=== PATIENT | female | born 1985 | race Caucasian/White ===

== ENCOUNTER → 2017-10-15 | Outpatient (REF) | payer OTHER ==
[2016-11-24 17:30] VITALS: BMI 43.1
[~2017-10-15] MED LIST: ACET-1718 PO; CALC-605 PO; ENOX40DI8 SQ; ENOX60DI8 SQ; HEPA100D89 ASDIRECTED; HYDR-317 PO; IBUP800T37 PO; PRED-1 PO; SERT-181 PO
== END ==
LOC: ZZSENDIN 11:01
PROVIDERS: ATTEND Obstetrics & Gynecology
DX: N89.8 Other specified noninflammatory disorders of vagina (principal)
CPT/HCPCS: 84112

== ENCOUNTER → 2018-01-07 | Outpatient (CLI) | payer OTHER ==
[2016-11-24 17:30] VITALS: BMI 43.1
[~2018-01-07] MED LIST changes: +HEPA500035 SC; +PREN-136
== END ==
LOC: LAB 11:07
PROVIDERS: ATTEND Obstetrics & Gynecology
DX: Z34.93 Encounter for supervision of normal pregnancy, unspecified, third trimester (principal)
CPT/HCPCS: 87081

== ENCOUNTER → 2018-01-13 | Outpatient (CLI) | payer OTHER ==
[2016-11-24 17:30] VITALS: BMI 43.1
== END ==
LOC: LAB 13:15
PROVIDERS: ATTEND Obstetrics & Gynecology
DX: O09.93 Supervision of high risk pregnancy, unspecified, third trimester (principal); Z86.711 Personal history of pulmonary embolism
CPT/HCPCS: 36415; 85027

== ENCOUNTER 2018-01-24 19:28 | Inpatient (IN) | payer OTHER ==
[~2018-01-24] VITALS: Ht 162.6 cm; Wt 116.6 kg
[2018-01-24] MEDS ORDERED: FAMOTIDINE(*) 20MG/50ML PREMIX 50 ML IVPB PRN (19:29)
[2018-01-24] MEDS ORDERED: FLUSH 10 ML SYR IVP PRN (19:30)
[2018-01-24] MEDS ORDERED: fentaNYL CITR 100 MCG/2 ML AMP IVP PRN (19:30)
[2018-01-24] MEDS ORDERED: LIDOCAINE 1% LOCAL 300 MG/30ML INJ PRN (19:30)
[2018-01-24] MEDS ORDERED: LIDOCAINE/SOD BICARB 8.4% SYR SC PRN (19:30)
[2018-01-24] MEDS ORDERED: METOCLOPRAMIDE 10 MG/2 ML SDV IVP PRN (19:30)
[2018-01-24] MEDS ORDERED: ONDANSETRON 4 MG/2 ML VIAL IVP PRN (19:35)
[2018-01-24] MEDS ORDERED: LR(*) 1000 ML BAG 1,000 ML IV PRN (20:18)
[2018-01-24 20:22] VITALS: BP 125/53; Ht 162.6 cm; Wt 116.6 kg
[2018-01-24 20:35] LABS: PLATELET COUNT, AUTOMATED 216 K/uL (150-450)
--- NOTE | 2018-01-24 20:49 | History & Physical ---
History of Present Illness EDC per LMP: February 01, 2018 Chief Complaint Induction History of Present Illness 32yo at 38w6d presents for ripening prior to induction due to being on anticoagulants during for history of DVT with subsequent PE. She denies regular UCx. No VB/LOF. +FM. No preeclampsia symptoms. PNR reviewed. PNC by EMILLefty. c/b obesity (prepregnancy BMI 40) and history of DVT with PE in 2006. Her last dose of prophylactic heparin was at 0700 today. 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 They live with their 3 children and her mother. No use of alcohol, tobacco, or illicit drugs. Family History: FH: HTN (hypertension) MOTHER, Age:52 FH: depression family members unspecified FH: heart disease FATHER, Age:66 FH: kidney disease MOTHER, Age:52 FH: lung disease MOTHER, Age:52 FH: thyroid condition aunt Med Rec Home Meds Active Scripts Heparin Sod,Porc/Pf 5000 U/0.5 Ml (HEPARIN SOD 5,000 UNIT/ 0.5 ML) 5,000 Unit/ 0.5 Ml Vial, 62384 UNIT SC BID for 21 Days, #42 VIAL 0 Refills Prov:JAYCE BOLDEN MD 01/07/18 Reported Medications Vit W-Ca,Fe,FA(<1 mg) ( Vitamins) 1 Each Tablet 01/04/18 Sertraline Hcl (SERTRALINE HCL) 100 Mg Tablet, 1 TAB PO QDAY, TAB 12/31/17 Review of Systems Constitutional: No Fever Eyes: No Vision Change Cardiovascular: No Chest Pain Respiratory: No Shortness of Breath, No Cough Gastrointestinal: No Nausea, No Vomiting, No Diarrhea Genitourinary: No Dysuria Musculoskeletal: No Pain Psychiatric: No Depression, No Anxiety Exam General Exam Vital Signs VS reviewed General Apperance: Alert/Awake/No Acute Distress Neuro: No Gross deficits Eyes: Normal Extraocular Movement & Vison Cardiovascular: Regular Rate and Rhythm Respiratory: No Respiratory Distress, Clear to Auscultation Abdomen: Soft, Non-Tender, Non-Distended, Gravid - Non-Tender : Normal Musculoskeletal: No Weakness/Pain Extremities: No Cyanosis,Clubbing or Edema Integumentary: Skin Intact without Lesions or Rash Psychological: Alert & Oriented X3, Appropriate Mood & Affect Cervical Dialation: 2 Cervical Effacement (%): 50 Cervical Consistency: Moderate Cervical Position: Posterior Station: Ballotable Presentation: Vertex Uterine Contractions(Q min): 4 Uterine Contraction Strength: Mild UC Resting Tone: Soft Fetus Feeling Movement?: Yes FHT Category: I Assessment and Plan Problems: (1) History of pulmonary embolism Status: Chronic Assessment & Plan: 32yo at 38w6d presents for ripening prior to IOL due to anticoagulation in . Her last heparin dose was 0700 on 01/24/18. PTT is normal at 25. Will proceed with ripening and follow with IOL once more favorable. Plan cytotec 25mcg now and pitocin later. Plan SCDs during labor and will re-initiate Lovenox PP. (2) 39 weeks gestation of JAYCE BOLDEN MD January 24, 2018 20:31
[2018-01-24] MEDS ORDERED: OXYTOCIN 30 UNIT/LR 500 ML 500 ML IV PRN (20:50)
[2018-01-24] MEDS ORDERED: MISOPROSTOL 25 MCG CAP PV PRN (20:50)
[2018-01-24] MEDS ORDERED: CLINDAMYCIN 900 MG/6 ML 900 MG in NS(*) 0.9% 100 ML BAG 100 ML IVPB ONE (21:50)
[2018-01-24] MEDS ORDERED: CLINDAMYCIN 900 MG/6 ML 900 MG in NS(*) 0.9% 100 ML BAG 100 ML IVPB PRN (21:55)
[2018-01-25] MEDS ORDERED: BUPIVACAINE 0.5% INJ 30ML VIAL EPI PRN (00:20)
[2018-01-25] MEDS ORDERED: BUPIVACAINE 0.25% MPF INJ EPI PRN (00:20)
[2018-01-25] MEDS ORDERED: LIDOCAINE/PF 2% 200MG/10ML AMP 200 MG/10 ML AMPUL EPI PRN (00:20)
[2018-01-25] MEDS ORDERED: fentaNYL CITR 100 MCG/2 ML AMP IT PRN (00:20)
[2018-01-25] MEDS ORDERED: ePHEDrine 25 MG/5 ML DISP.SYR IVP PRN (00:20)
[2018-01-25] MEDS ORDERED: FENTANYL/ROPIVACAINE 100 ML BAG EPI PRN (00:20)
[2018-01-25] MEDS ORDERED: LIDO/EPI 2% MPF 1:200,000 20ML EPI PRN (00:20)
[2018-01-25] MEDS ORDERED: LR(*) 1000 ML BAG 1,000 ML IV PRN (01:47)
[2018-01-25] MEDS ORDERED: OXYTOCIN 30 UNIT/D5LR 500 ML 500 ML IV PRN (01:47)
[2018-01-25] MEDS ORDERED: LIDOCAINE 1% LOCAL 300 MG/30ML INJ PRN (01:50)
[2018-01-25] MEDS ORDERED: FLUSH 10 ML SYR IVP PRN (01:50)
--- NOTE | 2018-01-25 01:59 | Anesthesia OB Pre-Anes Eval ---
History of Present Illness Anesthesia Start Date: January 25, 2018 Anesthesia Start Time: 01:06 OB Anesthesia Diagnosis: induction - medical Current Complication: obesity, other (bld thinners/dvt hx) EDC: February 01, 2018 : 7 Para: 3 Pain Ratin Heart Tones: 130 Result Diagram: 01/24/182009 Height (Inches): 64 Weight (Pounds): 257 BMI Calculated: 43.07 Past Medical History Medical History: other (PE) Previous Anesthesia: epidural Attended Childbirth Classes?: No Hx Anesthesia Reactions: No Hx Family Anesthesia Reaction: No Current Medications: pitocin Past Complications: obesity (last heparin @0630 01/24/18) Home Meds Active Scripts Heparin Sod,Porc/Pf 5000 U/0.5 Ml (HEPARIN SOD 5,000 UNIT/ 0.5 ML) 5,000 Unit/ 0.5 Ml Vial, 58635 UNIT SC BID for 21 Days, #42 VIAL 0 Refills Prov:JAYCE BOLDEN MD 01/07/18 Reported Medications Vit W-Ca,Fe,FA(<1 mg) ( Vitamins) 1 Each Tablet 01/04/18 Sertraline Hcl (SERTRALINE HCL) 100 Mg Tablet, 1 TAB PO QDAY, TAB 12/31/17 Allergies: Coded Allergies: Sulfa (Sulfonamide Antibiotics) (Verified Allergy, Severe, ANAPHYLAXIS, 09/07) THROAT SWELLS, verified 12/31/17 Penicillins (Verified Allergy, Mild, HIVES, 12/31/17) verified 12/31/17 mold (Unverified Allergy, Mild, 01/04/18) Anesthesia OB ROS Neurological: No migraines/headaches, No seizures, No neuropathy, No other ENT: Denies Tooth caps, Denies Loose teeth, Denies Chipped teeth, Denies Dentures, Denies Bridges, Denies Retainers, Denies Veneers, Denies Implants, Denies Tongue ring, Denies Other Pulmonary: No asthma, No smoker (pks/day/yrs), No other Airway Class: lll Cardiovascular ROS: No edema, No arrhythmia, No other GI ROS: clear liquids Last Solids Date: January 24, 2018 Last Solids Time: 17:30 ROS: No Herpes, No STD(s), No Liver Disease, No Renal Disease, No Other Endocrine ROS: other (obese) Musculoskeletal ROS: No low back pain, No low back injury, No scoliosis, No other ASA Classification: 3 Assessment and Plan Anesthesia Plan: LEO HILL CRNA January 25, 2018 01:59
--- NOTE | 2018-01-25 02:02 | Procedure Note ---
Anesthetic Placement Note Anesthesia Plan: CSE Permit for Anesthesia Signed: Yes Anesthesia Technique: Patient Sitting Anesthesia Prep: Chlorhexidine Interspace: L 3-4 Local Anesthetic: 1% Lidocaine Amount Local - cc's: 3 Anesthesia Needle: 17g Touhy/Schliff Anesthesia Attempts: 1 Loss of Resistance: Normal Saline Depth of MAC (cm): 5 Epidural Needle Placement: No CSF, No Blood, No Parasthesia Intrathecal Needle: 27 Gauge Pencan Cerebral Spinal Fluid: Yes, Clear Catheter Insertion (cm): 11 Catheter Type: Osman - Spring Wound Epidural Dressing: Tegaderm, Tape Anesthesia Tray: Lot Number ([id number]), Expiration Date (07/08), Reference Number ([id number]) Anesthesia Medications: Intrathecal Dose: mcg Fentanyl (10), mg Marcaine MPF (2.5), Time (0125) Epidural Test Dose: 1.5 Lido/Epi (1:200,000), Dose - mL (3), Time (0129), Negative Epidural Infusion: 0.2% Ropivicaine, With Fentanyl 2mcg/ml, Start Time: (0137) Epidural Pump Setting: Bolus Dose - mL (6), Lockout - Minutes (20), Maintenance Rate - mL/hr (6), Maximum per Hour - mL (24) Complications: None LEO URIBE CRNA January 25, 2018 02:02
[2018-01-25] MEDS ORDERED: MISOPROSTOL 200 MCG TAB PV ONE (06:45)
[2018-01-25] MEDS ORDERED: CARBOPROST TROMETHAM 250MCG/ML IM ONLY ONE (06:45)
[2018-01-25] MEDS ORDERED: METHYLERGONOVINE MAL 0.2MG/ML IM ONE (06:45)
[2018-01-25] MEDS ORDERED: DIPHENOX/ATROPINE 2.5-0.025MG PO PRN (06:45)
--- NOTE | 2018-01-25 07:22 | Labor Progress Note ---
Labor Subjective Progress Notes Subjective Pt is doing well. Comfortable with epidural. No concerns. Labor Objective Vital Signs Vital Signs Date Time Temp Pulse Resp B/P (MAP) Pulse Ox O2 Delivery O2 Flow Rate FiO2 01/24/18 20:22 98.3 83 14 125/53 (77) 94 Room Air Vaginal Discharge/Fluid?: Clear Fluid Cervical Dialation: 4 Cervical Effacement (%): 70 Cervical Consistency: Soft Cervical Position: Mid Station: 0 Presentation: Vertex Uterine Contractions(Q min): 5 Uterine Contraction Strength: Moderate UC Resting Tone: Soft Fetus FHT Category: I General Exam General Appearance: Alert/Awake/No Acute Distress Cardiovascular: Regular Rate and Rhythm Respiratory: No Respiratory Distress Extremities: No Cyanosis,Clubbing or Edema (SCDs on) Integumentary: Skin Intact without Lesions or Rash Psychological: Alert & Oriented X3, Appropriate Mood & Affect Other Result Diagram: 01/24/182009 Assessment and Plan Problems: (1) History of pulmonary embolism Status: Chronic Assessment & Plan: Pt is now favorable. AROM with clear fluid and FSE/IUPC placed for monitoring assistance. Continue pitocin. Anticipate . (2) 39 weeks gestation of JAYCE BOLDEN MD January 25, 2018 07:21
[2018-01-25] MEDS ORDERED: MISOPROSTOL 200 MCG TAB ONE (07:34)
--- NOTE | 2018-01-25 07:51 | Anesthesia Progress Note ---
Progress/Maintenance Anesthesia Note Date: January 25, 2018 Anesthesia Note Time: 06:00 Pain Intensity: 0 Pump: On Pump Rate (ML/HR): 6 Motor Level: Bending Knees-Bilateral Dilatation: 4 Position: Left, Tilt LEO URIBE CRNA January 25, 2018 07:51
--- NOTE | 2018-01-25 08:34 | Anesthesia Progress Note ---
Progress/Maintenance Anesthesia Note Date: January 25, 2018 Anesthesia Note Time: 08:25 Pain Intensity: 7 Pump: On Pump Rate (ML/HR): 6 Motor Level: Bending Knees-Bilateral Dilatation: 10 Position: Left Drug Bolus: 0.25% Marcaine (5cc + Fent 50 mcg) LEO URIBE CRNA January 25, 2018 08:34
[2018-01-25] MEDS ORDERED: HYDROCORTISONE 2.5% CR 30GM TB PR PRN (08:55)
[2018-01-25] MEDS ORDERED: BENZOCAINE 20% 60 ML BTL TP PRN (08:55)
[2018-01-25] MEDS ORDERED: LANOLIN OINT 7 GM TUBE TP PRN (08:55)
[2018-01-25] MEDS ORDERED: APAP/HYDROCODONE 325/5 TAB PO PRN (08:55)
[2018-01-25] MEDS ORDERED: GLYCERIN/WITCH HAZEL LEAF 1 PK TP PRN (08:55)
[2018-01-25] MEDS ORDERED: MAGNESIUM HYDROXIDE* 30ML UDCP PO PRN (08:55)
--- NOTE | 2018-01-25 08:55 | OB Delivery Note ---
Delivery Note Vaginal Delivery Type: Spont. Vaginal Delivery Delivery Date: January 25, 2018 Delivery Time: 08:39 Estimated Gestational Age(wks): 39 Labor Stage III (minutes): 3 Delivery Anesthesia: Epidural Sex: Female [place] Apgars: 1 Minute (9), 5 Minute (9) JAYCE BOLDEN MD January 25, 2018 08:55
--- NOTE | 2018-01-25 08:58 | Anesthesia Progress Note ---
Assessment and Plan Anesthesia Stop Day: January 25, 2018 Anesthesia Stop Time: 08:50 Epidural Catheter Removal: Removed Catheter Intact, Yes, Removed by: (Yarely JACOB) Removal Date: January 25, 2018 Condition Vital Signs 01/25/18 0850 Temp 98.3 Pulse 83 Resp 16 B/P (MAP) 113/71 Pulse Ox 94 O2 Delivery Room Air LEO URIBE CRNA January 25, 2018 08:58
[2018-01-25] MEDS ORDERED: LR(*) 1000 ML BAG 1,000 ML ONE (09:45)
[2018-01-25 09:47] VITALS: BP 123/75
[2018-01-25] MEDS: DOCUSATE CALCIUM 240 MG CAP PO SCH ×2 (09:49→22:01)
[2018-01-25] MEDS: IBUPROFEN 800 MG TAB PO SCH ×2 (09:50→17:11)
--- NOTE | 2018-01-25 10:53 | DELIVERY NOTE ---
DELIVERY DATE: January 25, 2018 SURGEON: Asiya Guillermo MD ANESTHESIA: Epidural. LAB INTERN: Otilia Ruiz CRNA ESTIMATED BLOOD LOSS 100 mL. PREOPERATIVE DIAGNOSIS Intrauterine at 39 weeks gestation presenting for induction of labor due to anticoagulation during . POSTOPERATIVE DIAGNOSES 1. Intrauterine at 39 weeks gestation presenting for induction of labor due to anticoagulation during . 2. Delivery of a viable female infant at 0839 hours weighing 2830 grams with Apgars of 9 at one minute and 9 at five minutes. PROCEDURE Spontaneous vaginal delivery. INDICATIONS FOR PROCEDURE This patient is a 32-year-old 8, para 4-0-3-4 who presented at 38 weeks and 6 days for cervical ripening prior to induction of labor. At the time of presentation, she was 2, 50 and ballotable. She was being induced due to a history of pulmonary embolism in 2006 requiring anticoagulation during . She had a normal PT-T after stopping her heparin for approximately 12 hours prior to admission. SCDs were on and running throughout her entire admission. She was administered Cytotec vaginally, after which time she was 3, 70, -3. She was then started on low-dose Pitocin and slowly increased, allowing the head to become more applied. At 0712 hours, she was 4, 70 and -1, at which time an amniotomy was performed with return of clear fluid. She then progressed to complete at 0832 hours, and was prepared for delivery. DESCRIPTION OF PROCEDURE The patient was noted to be complete, so was placed in the dorsal lithotomy position and prepped and draped in usual fashion for a vaginal delivery. She was asked to push, and within half a push was able to bring the 's vertex to the perineum. She then stopped pushing, and the 's vertex delivered in the QUINN position spontaneously followed by the anterior shoulder. A nuchal cord was noted and delivered around the head. The remainder of the was easily delivered. The infant had spontaneous cry and spontaneous movement of all four extremities. The oropharynx and nasopharynx were bulb suctioned. The infant was dried and stimulated and passed to the mother's abdomen in good condition. After approximately one minute, the cord was clamped times two and cut. Cord blood was then obtained and passed off the table. Pitocin was started through the IV fluid immediately after delivery of the shoulder to help firm the uterus. The placenta subsequently delivered spontaneously intact at 0842 hours and was passed off the table. Cytotec 800 mcg was administered rectally for prophylaxis due to her grand multiparity. At this time, evaluation of the cervix, vaginal vault and perineum revealed no lacerations. The patient tolerated this procedure well and recovered in Labor and Delivery with her . All sponge and needle counts were correct at the end of this procedure. ANTIONED
[2018-01-25 11:34] VITALS: BP 121/63
[2018-01-25 15:40] VITALS: BP 117/58
[2018-01-25] MEDS ORDERED: ENOXAPARIN 100 MG/ML SYR SC SCH (19:00)
[2018-01-25 19:30] VITALS: BP 137/77
[2018-01-25] MEDS: SERTRALINE HCL 50 MG TAB PO SCH (19:32)
[2018-01-25] MEDS: ENOXAPARIN SODIUM 60 MG/0.6 ML SYR SC SCH (21:00)
[2018-01-26 00:06] VITALS: BP 147/68
[2018-01-26] MEDS: IBUPROFEN 800 MG TAB PO SCH ×3 (00:48→16:47)
[2018-01-26 03:00] VITALS: BP 123/58
[2018-01-26 08:00] VITALS: BP 133/63
[2018-01-26] MEDS: ENOXAPARIN SODIUM 60 MG/0.6 ML SYR SC SCH ×2 (08:23→21:12)
[2018-01-26] MEDS: DOCUSATE CALCIUM 240 MG CAP PO SCH ×2 (08:23→19:44)
--- NOTE | 2018-01-26 08:27 | OB/GYN Progress Note ---
OB Subjective Progress Notes Subjective Doing well. Pain controlled with oral medications. Tolerating regular diet. Ambulating. Voiding. Normal lochia. No preeclampsia symptoms. OB Objective Physical Exam Vital Signs Date Time Temp Pulse Resp B/P (MAP) Pulse Ox O2 Delivery O2 Flow Rate FiO2 01/26/18 03:00 98.4 59 16 123/58 (79) Room Air 01/25/18 15:40 91 General Appearance: Alert/Awake/No Acute Distress Neurological: No Gross deficits Eyes: Normal Extraocular Movement & Vison Cardiovascular: Normal Rhythm & Peripheral Pulses, Regular Rate and Rhythm Respiratory: No Respiratory Distress, Clear to Auscultation Abdomen: Soft, Non-Tender, Non-Distended, Fundus Firm Extremities: No Cyanosis,Clubbing or Edema (SCDs on) Integumentary: Skin Intact without Lesions or Rash Psychological: Alert & Oriented X3, Appropriate Mood & Affect Result Diagram: 01/24/182009 Assessment and Plan Problems: (1) care and examination immediately after delivery Assessment & Plan: PPD#1 s/p . Work on today. Anticipate home tomorrow. (2) History of pulmonary embolism Status: Chronic JAYCE BOLDEN MD January 26, 2018 08:27
[2018-01-26] MEDS ORDERED: DIPHTH/TETANUS/ACEL. PERTUSSIS IM ONLY ONE (08:55)
[2018-01-26] MEDS ORDERED: INFLUENZA VIRUS VAC 0.5 ML SYR IM ONLY ONE (08:55)
[2018-01-26] MEDS ORDERED: MEASLES,MUMP,RUBELLA VAC 0.5ML SUBQ ONE (08:55)
--- NOTE | 2018-01-26 10:47 | Anesthesia Post Eval Note ---
Anesthesia Post Eval Note Vital Signs 01/26/18 08:00 Temp 98.3 Pulse 59 Resp 16 B/P (MAP) 133/63 (86) Pulse Ox 90 O2 Delivery Room Air Cardiovascular Status: Satisfactory Respiratory Status: Satisfactory Pain Managment: Satisfactory PO Nausea/Vomiting: Satisfactory Temperature Management: Satisfactory Mental Status: Satisfactory, Alert, Oriented X3 Post-Op Hydration Status: Satisfactory, Tolerating PO Well, Voiding w/o Difficulty Anesthesia Type: LEO HILL CRNA January 26, 2018 10:47
[2018-01-26 12:05] VITALS: BP 124/78
[2018-01-26] MEDS: ACETAMINOPHEN 325 MG TAB PO PRN ×2 (14:47→23:25)
[2018-01-26 16:45] VITALS: BP 141/67
[2018-01-26] MEDS: SERTRALINE HCL 50 MG TAB PO SCH (19:43)
[2018-01-27] MEDS: IBUPROFEN 800 MG TAB PO SCH ×3 (01:00→08:49)
[2018-01-27 05:47] VITALS: BP 126/75
--- NOTE | 2018-01-27 07:41 | OB/GYN Progress Note ---
OB Subjective Progress Notes Subjective Doing well. Pain controlled with oral medications. Tolerating regular diet. Ambulating. Voiding. Normal lochia. No preeclampsia symptoms. OB Objective Physical Exam Vital Signs Date Time Temp Pulse Resp B/P (MAP) Pulse Ox O2 Delivery O2 Flow Rate FiO2 01/27/18 05:47 98.4 76 17 126/75 (92) Room Air 01/26/18 08:00 90 General Appearance: Alert/Awake/No Acute Distress Neurological: No Gross deficits Eyes: Normal Extraocular Movement & Vison Cardiovascular: Normal Rhythm & Peripheral Pulses, Regular Rate and Rhythm Respiratory: No Respiratory Distress, Clear to Auscultation Abdomen: Soft, Non-Tender, Non-Distended, Fundus Firm Extremities: No Cyanosis,Clubbing or Edema (SCDs on) Integumentary: Skin Intact without Lesions or Rash Psychological: Alert & Oriented X3, Appropriate Mood & Affect Result Diagram: 01/24/182009 Assessment and Plan Problems: (1) care and examination immediately after delivery Assessment & Plan: PPD#2. Meeting milestones. Desires discharge to home today. Discussed routine expectations. Questions answered. Follow up in clinic in 6wks for check. (2) History of pulmonary embolism Status: Chronic JAYCE BOLDEN MD January 27, 2018 07:41
[2018-01-27] MEDS ORDERED: SERT-181 PO (07:42)
[2018-01-27] MEDS ORDERED: Enoxaparin Sodium SC (07:42)
[2018-01-27] MEDS ORDERED: IBUP800T37 PO (07:42)
--- NOTE | 2018-01-27 07:43 | OB/GYN Discharge Summary ---
Discharge Summary Reason for Hosp/Final Diag: (1) care and examination immediately after delivery Hospital Course & Plan: PPD#2. Meeting milestones. Desires discharge to home today. Discussed routine expectations. Questions answered. Follow up in clinic in 6wks for check. (2) History of pulmonary embolism Status: Chronic Hospital Course & Plan: Cont Lovenox 60 BID for 6wks. Lates Vital Signs Vital Signs Date Time Temp Pulse Resp B/P (MAP) Pulse Ox O2 Delivery O2 Flow Rate FiO2 01/27/18 05:47 98.4 76 17 126/75 (92) Room Air 01/26/18 08:00 90 Weight (Pounds): 257 Result Diagram: 01/24/182009 Condition: Improved Home Meds Active Scripts Heparin Sod,Porc/Pf 5000 U/0.5 Ml (HEPARIN SOD 5,000 UNIT/ 0.5 ML) 5,000 Unit/ 0.5 Ml Vial, 84484 UNIT SC BID for 21 Days, #42 VIAL 0 Refills Prov:JAYCE GUILLERMO MD 01/07/18 Reported Medications Vit W-Ca,Fe,FA(<1 mg) ( Vitamins) 1 Each Tablet 01/04/18 Sertraline Hcl (SERTRALINE HCL) 100 Mg Tablet, 1 TAB PO QDAY, TAB 12/31/17 Follow up Referrals: OR NURSE MANAGER @ [facility] with Jayce Guillermo Md Discharge Diet: As Tolerates Discharge Activity: Pelvic Rest JAYCE GUILLERMO MD January 27, 2018 07:43
[2018-01-27 08:45] VITALS: BP 132/72
[2018-01-27] MEDS: ENOXAPARIN SODIUM 60 MG/0.6 ML SYR SC SCH (08:45)
[2018-01-27] MEDS: DOCUSATE CALCIUM 240 MG CAP PO SCH (08:49)
== END 2018-01-27 09:20 | disposition home or self-care (01) | DRG 775 ==
LOC: OB 19:28
PROVIDERS: ADMIT Obstetrics & Gynecology; ATTEND Obstetrics & Gynecology
PROC: 3E0P7VZ Introduction of Hormone into Female Reproductive, Via Natural or Artificial Opening (ICD-10-PCS; 2018-01-24)
PROC: 3E033VJ Introduction of Other Hormone into Peripheral Vein, Percutaneous Approach (ICD-10-PCS; 2018-01-24)
PROC: 10E0XZZ Delivery of Products of Conception, External Approach (ICD-10-PCS; principal; 2018-01-25)
PROC: 10907ZC Drainage of Amniotic Fluid, Therapeutic from Products of Conception, Via Natural or Artificial Opening (ICD-10-PCS; 2018-01-25)
DX: O69.81X0 Labor and delivery complicated by cord around neck, without compression, not applicable or unspecified (principal); Z68.41 Body mass index [BMI] 40.0-44.9, adult; O99.214 Obesity complicating childbirth; E66.9 Obesity, unspecified; Z37.0 Single live birth; Z88.2 Allergy status to sulfonamides; Z3A.39 39 weeks gestation of pregnancy; Z86.711 Personal history of pulmonary embolism; Z79.01 Long term (current) use of anticoagulants; Z88.0 Allergy status to penicillin; Z86.718 Personal history of other venous thrombosis and embolism
CPT/HCPCS: 36415; 85025; 85730; 86850; 86900; 86901; J2590; J3010; J7120; S0020

== ENCOUNTER → 2018-03-16 | Outpatient (CLI) | payer OTHER ==
[2018-01-24 20:22] VITALS: BMI 42.8
[~2018-03-16] MED LIST changes: +Enoxaparin Sodium SC
== END ==
LOC: LAB 14:21
PROVIDERS: ATTEND Obstetrics & Gynecology
DX: R82.90 Unspecified abnormal findings in urine (principal); R82.79 Other abnormal findings on microbiological examination of urine
CPT/HCPCS: 87088

== ENCOUNTER → 2018-04-12 | Outpatient (CLI) | payer OTHER ==
[2018-01-24 20:22] VITALS: BMI 42.8
--- NOTE | 2018-04-12 15:02 | RADIOLOGY IMAGING REPORT ---
[place] [facility] [place] NAME: Norma Parks : 1985 MR: [id number] V: [id number] EXAM DATE: ORDERING PHYSICIAN: JAYCE BOLDEN TECHNOLOGIST: Location: [facility] Patient: Norma Parks : 1985 Visit/Account:[id number] Date of Sevice: 04/12/2018 Exam type: KUB SINGLE VIEW ABDOMEN History: locate IUD Comparison: None. Findings: There is a nonspecific bowel gas pattern present. Surgical clips are present right upper quadrant of abdomen. There is an IUD projecting over the mid pelvis. The IUD is in a horizontal location with the distal tip projecting towards the right. IMPRESSION: 1. IUD is noted projecting over the mid pelvis in a horizontal location with the distal tip projecti ng towards the right Report Dictated By: Annie Fuentes MD at 04/12/2018 2:57 PM Report E-Signed By: Annie Fuentes MD at 04/12/2018 2:59 PM ELISAN:JESICA
== END ==
LOC: RAD 13:49
PROVIDERS: ATTEND Obstetrics & Gynecology
DX: T83.32XA Displacement of intrauterine contraceptive device, initial encounter (principal)
CPT/HCPCS: 74018

== ENCOUNTER 2018-04-14 02:07 | Day surgery (SDC) | payer OTHER ==
[2018-01-24 20:22] VITALS: Ht 167.6 cm; Wt 109.3 kg
[~2018-04-14] VITALS: Ht 167.6 cm; Wt 109.3 kg
[2018-04-14 09:00] VITALS: BP 123/54
[2018-04-14 09:13] LABS: PLATELET COUNT, AUTOMATED 302 K/uL (150-450)
[2018-04-14] MEDS ORDERED: FAMOTIDINE 20 MG TAB PO ONE (09:50)
[2018-04-14] MEDS ORDERED: MIDAZOLAM 2 MG/2 ML VIAL IVP PRN (09:50)
[2018-04-14] MEDS ORDERED: LIDOCAINE/SOD BICARB 8.4% SYR ID ONE (09:50)
[2018-04-14] MEDS ORDERED: NORMOSOL R SOLN(*) 1000 ML BAG 1,000 ML IV PRN (09:50)
[2018-04-14] MEDS ORDERED: ROPIVACAINE 0.2% 20 ML VIAL ONE (09:50)
[2018-04-14] MEDS ORDERED: DEXAMETHASONE SOD PHOS 10MG/ML ONE (10:00)
[2018-04-14] MEDS ORDERED: SUGAMMADEX SOD 500 MG/5 ML SDV ONE (10:00)
[2018-04-14] MEDS ORDERED: fentaNYL CITR 100 MCG/2 ML AMP ONE ×2 (10:02→11:04)
[2018-04-14] MEDS ORDERED: KETOROLAC 30 MG/ML VIAL ONE (10:42)
[2018-04-14] MEDS ORDERED: LR(*) 1000 ML BAG 1,000 ML IV ONE (11:17)
[2018-04-14] MEDS ORDERED: ONDANSETRON 4 MG/2 ML VIAL IVP PRN (11:20)
[2018-04-14] MEDS ORDERED: METOCLOPRAMIDE 10 MG/2 ML SDV IVP PRN (11:20)
--- NOTE | 2018-04-14 11:29 | Post Operative Note ---
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 Operative Day Date: Apr 14, 2018 Time: 11:18 Physicians Surgeon: Vy Moser Anesthesia: ERI-Patrice Parmar 0.2% rupivicaine Diagnosis Pre-Op Diagnosis: 32 y/o Multigravida Displaced IUD/Intraabdominal Post-Op Diagnosis: same Procedure Findings: Normal Uterus 8 week size Normal fallopian tubes and ovaries bilaterally IUD in the posterior Cul de sac Procedure(s): Diagnostic laparoscopy IUD removal Specimen Removed:(Maybe N/A): 0 Complications: 0 known Fluids Fluids: 900 u/o 200 Estimated Blood Loss: 5 Dictated Date OP Note Dictated: Apr 14, 2018 Time OP Note Dictated: 11:29 VY MOSER DO Apr 14, 2018 11:29
[2018-04-14] MEDS ORDERED: HYDR-4309 PO (11:32)
[2018-04-14] MEDS ORDERED: IBUP800T37 PO (11:32)
--- NOTE | 2018-04-14 11:34 | OB/GYN Discharge Summary ---
Discharge Summary Reason for Hosp/Final Diag: (1) Contraception, device intrauterine, checking Hospital Course & Plan: Pt presented for IUD removal from abdomen. IUD was easily removed from posterior cul de sac with out any difficulty. See details of procedure. Pt remained in recovery and was discharged home from same day surgery. Lates Vital Signs Vital Signs Date Time Temp Pulse Resp B/P (MAP) Pulse Ox O2 Delivery O2 Flow Rate FiO2 04/14/18 09:00 96.9 66 18 123/54 (77) 93 Room Air Weight (Pounds): 241 Result Diagram: 04/14/18 0859 Condition: Improved Discharge: Home Home Meds Active Scripts Ibuprofen (IBUPROFEN) 800 Mg Tablet, 1 TAB PO Q8H Y for PAIN, #30 TAB 0 Refills TAKE WITH FOOD EVERY 8 HOURS Prov:VY PINEDA DO 04/14/18 Hydrocodone Bit/Acetaminophen (NORCO 5-325 TABLET) 1 Each Tablet, 1 EACH PO Q4- 6H Y for PAIN, #20 TAB 0 Refills Prov:VY PINEDA DO 04/14/18 Sertraline Hcl (SERTRALINE HCL) 100 Mg Tablet, 2 TAB PO QDAY, #240 TAB 6 Refills Prov:JAYCE GUILLERMO MD 03/16/18 Reported Medications Vit W-Ca,Fe,FA(<1 mg) ( Vitamins) 1 Each Tablet 01/04/18 Follow up with: [facility] [place] [phone], Dr. Guillermo [phone] Follow up in: 2 wks PO Discharge Diet: As Tolerates, Resume Prior Admit Diet, Increase Fluid Intake Discharge Activity: As Tolerates, Pelvic Rest (X2 weeks) VY PINEDA DO Apr 14, 2018 11:34
[2018-04-14 11:45] VITALS: BP 110/68
[2018-04-14 12:10] VITALS: BP 108/68
[2018-04-14 12:30] VITALS: BP 116/61
[2018-04-14 12:33] VITALS: BP 104/72
[2018-04-14] MEDS ORDERED: IBUPROFEN 800 MG TAB PO SCH (17:00)
--- NOTE | 2018-04-14 17:32 | OPERATIVE REPORT 1 ---
EVENT DATE: April 14, 2018 SURGEON: Matt Moser DO ANESTHESIOLOGIST: Patrice Parmar MD ANESTHESIA: General endotracheal intubation, also 0.2% ropivacaine for local only. PREOPERATIVE DIAGNOSES 1. A 32-year-old multigravida female. 2. Displaced intra-abdominal intrauterine device. POSTOPERATIVE DIAGNOSES 1. A 32-year-old multigravida female. 2. Displaced intra-abdominal intrauterine device. PROCEDURE PERFORMED Diagnostic laparoscopy with intrauterine device removal. FINDINGS Normal uterus, 8 weeks' size. Normal fallopian tubes and ovaries bilaterally. IUD in the posterior cul-de-sac. PATHOLOGY None. ESTIMATED BLOOD LOSS 5 mL URINE OUTPUT 200 mL INTRAVENOUS FLUIDS Lactated Ringer's 900 mL. COMPLICATIONS None known. CONDITION Stable to recovery room and then to Same Day Surgery. COUNTS Correct for all needles, laps, sponges, and instruments. INDICATIONS AND CONSENT Patient is a 32-year-old multigravida female who presented to clinic for an IUD check. Patient has a history of spontaneously passing IUDs vaginally. It was decided to proceed with transvaginal ultrasound to check IUD location. The uterus was empty without an IUD. Patient then underwent a KUB x-ray with the IUD being noted to be intra-abdominal. The patient was counseled that it would be recommended to remove the IUD. She was counseled on risks, benefits, and alternatives, signed the appropriate consents, and proceeded to the operating room. DESCRIPTION OF PROCEDURE Patient was taken to the operating room where she was placed in the dorsal supine position. She then underwent general endotracheal intubation. Once anesthesia was achieved, she was placed in the dorsal lithotomy position, prepped and draped in the usual sterile manner. A sterile speculum was placed in the vagina. The cervix was visualized and grasped with an Allis clamp. The uterus was sounded to 8 cm. A KIERAN uterine manipulator was placed easily into the cervix. Speculum and Allis were removed. Legs were placed in low lithotomy position. The surgeon's gloves were changed. Attention was then turned to the abdomen. Ropivacaine 0.2% was used for local anesthesia at the umbilicus. A 5 mm incision was created with the 11 blade scalpel. Direct laparoscopic entry was performed using a Visiport trocar. Once within the peritoneum, pneumoperitoneum was achieved. The entry site was inspected and found to be clear of any injury to surrounding organs. With no injury, at this point the patient was placed in the Trendelenburg position. With the bowel out of the cul-de-sac, a trocar was placed in the left lower quadrant under direct laparoscopic visualization. A probe was used to move the ovaries and the bowel from the cul-de-sac. It was noted that the IUD was located within the posterior cul-de-sac. A Genicon grasper was then used to grasp the IUD. It was then placed on top of the uterus. The T part of the IUD was grasped with the Genicon and brought through the 5 mm trocar. A picture was taken of the IUD out of the abdomen. Nursing staff was instructed to dispose of the IUD and not to send it to Pathology. At this point, the left lower quadrant trocar was removed under laparoscopic visualization with hemostasis noted. The pneumoperitoneum was released. The umbilical trocar was removed without any difficulty. Skin incisions were then closed with a 4-0 Monocryl. Dermabond was placed over the skin incisions. The patient was then awoken and transferred to the recovery room in stable condition. OMA
== END 2018-04-14 11:45 | disposition home or self-care (01) ==
LOC: OR 02:07
PROVIDERS: ATTEND Student in an Organized Health Care Education/Training Program
DX: T83.32XA Displacement of intrauterine contraceptive device, initial encounter (principal)
CPT/HCPCS: 36415; 58301; 84703; 85025; J1100; J1885; J2795; J3010

== ENCOUNTER 2018-06-28 21:14 | Emergency (ER) | payer OTHER ==
[2018-01-24 20:22] VITALS: Wt 104.8 kg
[~2018-06-28 21:14] MED LIST changes: +HYDR-4309 PO
[2018-06-28] MEDS ORDERED: ACET-1966 PO (21:24)
[2018-06-28 21:30] VITALS: BP 116/80
[2018-06-28] MEDS ORDERED: PSEU120T68 PO (21:50)
[2018-06-28] MEDS ORDERED: DOXY-1 PO (21:50)
--- NOTE | 2018-06-28 21:51 | ER Report ---
History and Physical Time Seen By MD: 21:30 Hx. of Stated Complaint: Patient complains of sinus drainage, pressure, headache over the last 3 weeks. Worst over the weekend and now with metallic taste in mouth HPI/ROS CHIEF COMPLAINT: Sinus pressure HISTORY OF PRESENT ILLNESS: Patient is a 33-year-old female with no significant past medical history who presents to the emergency department for evaluation of sinus pressure, postnasal drip purulent nasal discharge over the past 3 weeks. Patient has tried Tylenol at home for pain which seems to help somewhat as well as 1 day's worth of Sudafed without any significant relief and sinus pressure. Pain is made worse by leaning forward. She feels as if she is having difficulty breathing through her nose secondary to congestion. She denies any fevers or chills. She denies cough or shortness of breath but she does report generalized malaise. Patient is not currently but is breast-feeding a 5-month-old. Patient reports allergies to sulfa drugs which cause "anaphylaxis" she also has rash that occurs with penicillin. REVIEW OF SYSTEMS: ENT: Sinus pressure, ear pressure and nasal congestion denies throat pain Respiratory: No cough, no dyspnea. Cardiovascular: No chest pain, no palpitations. Gastrointestinal: No vomiting, no abdominal pain. Musculoskeletal: No back pain. Allergies: Coded Allergies: Sulfa (Sulfonamide Antibiotics) (Verified Allergy, Severe, ANAPHYLAXIS, 06/28/18) THROAT SWELLS, verified 12/31/17 Penicillins (Verified Allergy, Mild, HIVES, 06/28/18) verified 12/31/17 mold (Unverified Allergy, Mild, 06/28/18) Home Meds Active Scripts Sertraline Hcl (SERTRALINE HCL) 100 Mg Tablet, 2 TAB PO QDAY, #240 TAB 6 Refills Prov:JAYCE BOLDEN MD 03/16/18 Reported Medications Acetaminophen (TYLENOL) 325 Mg Tablet, 325 MG PO Q4-6H, TAB 06/28/18 Vit W-Ca,Fe,FA(<1 mg) ( Vitamins) 1 Each Tablet 01/04/18 Discontinued Scripts Ibuprofen (IBUPROFEN) 800 Mg Tablet, 1 TAB PO Q8H PRN for PAIN, #30 TAB 0 Refills TAKE WITH FOOD EVERY 8 HOURS Prov:VY PINEDA DO 04/14/18 Hydrocodone Bit/Acetaminophen (NORCO 5-325 TABLET) 1 Each Tablet, 1 EACH PO Q4- 6H PRN for PAIN, #20 TAB 0 Refills Prov:VY PINEDA DO 04/14/18 Past Medical/Surgical History History of depression Hx Smoking: No Smoking Status: Never Smoker Exposure to Second Hand Smoke?: No Hx Substance Use Disorder: No Constitutional Vital Sign - Last 24 Hours 06/28/18 21:17 Temp 98.8 Pulse 90 Resp 16 B/P (MAP) 126/73 Pulse Ox 93 O2 Delivery Room Air Physical Exam General Appearance: Alert, no distress. Eyes: Pupils equal and round no pallor or injection. ENT, Mouth: Ears: Tympanic membranes are normal. Nose: No bleeding. Positive nasal turbinate inflammation with purulent discharge Mouth: Mucous membranes are moist. Positive posterior wall cobblestoning Throat: No erythema or exudates there is no tonsillar hypertrophy and uvula i s midline. Musculoskeletal: Neck is supple non tender, no adenopathy. Skin: Warm and dry, no rashes. Medical Decision Making ED Course/Re-evaluation ED Course After history and physical exam was performed differential diagnosis was formulated which includes but is not limited to acute sinusitis, upper respiratory infection, otitis media, strep throat. Based on history and physical exam along with the length of duration of symptoms I feel the patient is appropriate for treatment for acute rhinosinusitis. Plan will be to place the patient on 7 days of doxycycline 100 mg twice per day. Review of medical literature reveals that short term dosing of doxycycline is appropriate for breast-feeding patients. Decision to Disposition Date: Jun 28, 2018 Decision to Disposition Time: 21:48 Depart Departure Latest Vital Signs Vital Signs Date Time Temp Pulse Resp B/P (MAP) Pulse Ox O2 Delivery O2 Flow Rate FiO2 06/28/18 21:17 98.8 90 16 126/73 93 Room Air Impression: Primary Impression: Sinusitis Condition: Improved Disposition: HOME OR SELF-CARE Referrals: JAYCE BOLDEN MD (PCP) New Scripts Pseudoephedrine Hcl (SUDAFED 12-HOUR) 120 Mg Tablet.er 120 MG PO Q12H for congestion, #30 TAB 0 Refills Prov: GEOFFREY JIMENEZ MD 06/28/18 Doxycycline Hyclate (VIBRAMYCIN) 100 Mg Capsule 100 MG PO BID for 7 Days, #14 CAPSULE 0 Refills Prov: GEOFFREY JIMENEZ MD 06/28/18 Patient Instructions: Sinusitis (GEN) Additional Instructions: Take your antibiotics as prescribed until completed Follow-up routinely with your primary care provider. If your symptoms do not improve after 72 hours you should schedule a follow-up appointment with your primary care provider for reevaluation. If your symptoms worsen at any time including development of neck stiffness or fever he should be reevaluated immediately in the emergency department Problem Qualifiers Primary Impression: Sinusitis Sinusitis location: unspecified location Chronicity: acute Recurrence: non-recurrent Qualified Codes: J01.90 - Acute sinusitis, unspecified GEOFFREY JIMENEZ MD Jun 28, 2018 21:51
[2018-06-28] MEDS ORDERED: DOXYCYCLINE HYCL 100 MG TAB PO ONE (22:00)
== END 2018-06-28 22:06 | disposition home or self-care (01) ==
LOC: ER 21:34
DX: J01.90 Acute sinusitis, unspecified (principal)
CPT/HCPCS: 99283

== ENCOUNTER 2018-08-19 09:10 | Emergency (ER) | payer OTHER ==
[2018-01-24 20:22] VITALS: Wt 104.8 kg
[~2018-08-19 09:10] MED LIST changes: +ACET-1966 PO; +DOXY-1 PO; +FLUC150T40 PO; -HYDR-4309 PO; +HYDR-653 PO; +PSEU120T68 PO
[2018-08-19] MEDS ORDERED: ONDANSETRON 4 MG/2 ML VIAL IVP ONE ×2 (09:40→11:45)
[2018-08-19] MEDS ORDERED: NS(*) 0.9% 1000 ML BAG 1,000 ML IV ONE (09:40)
--- NOTE | 2018-08-19 09:45 | ER Report ---
History and Physical Time Seen By MD: 09:46 Hx. of Stated Complaint: MID TO LEFT ABDO PAIN AND CRAMPING, WATERY DIARRHEA, VOMITING BILE, STARTED 745AM. HAD SIMILAR EPISODE LAST WEEK HPI/ROS 33 y/o female with acute episode of nausea vomiting and diarrhea that started around 8 AM this morning. No abdominal pain other than some diffuse cramping pain she gets prior to an episode of diarrhea. No hematemesis or hematochezia. No recent travel. No known sick contacts. No dysuria or hematuria. No fever or chills. Remainder of the 14 system rev: Yes Allergies: Coded Allergies: Sulfa (Sulfonamide Antibiotics) (Verified Allergy, Severe, ANAPHYLAXIS, 06/28/18) THROAT SWELLS, verified 12/31/17 Penicillins (Verified Allergy, Mild, HIVES, 06/28/18) verified 12/31/17 mold (Unverified Allergy, Mild, 06/28/18) Home Meds Active Scripts Ondansetron Hcl (ZOFRAN) 4 Mg Tablet, 4 MG PO Q12H for 3 Days, #20 TAB Prov:KAVYA OBRIEN MD 08/19/18 Sertraline Hcl (SERTRALINE HCL) 100 Mg Tablet, 2 TAB PO QDAY, #240 TAB 6 Refills Prov:JAYCE BOLDEN MD 03/16/18 Reported Medications Vit W-Ca,Fe,FA(<1 mg) ( Vitamins) 1 Each Tablet 01/04/18 Discontinued Reported Medications Acetaminophen (TYLENOL) 325 Mg Tablet, 325 MG PO Q4-6H, TAB 06/28/18 Discontinued Scripts Fluconazole (DIFLUCAN) 150 Mg Tablet, 150 MG PO DIRECTED, #2 TAB 0 Refills 1 tab PO now and repeat in 3 days Prov:JAYCE BOLDEN MD 08/06/18 Reviewed Nurses Notes: Yes Old Medical Records Reviewed: Yes Hx Smoking: No Smoking Status: Never Smoker Exposure to Second Hand Smoke?: No Hx Substance Use Disorder: No Constitutional Vital Sign - Last 24 Hours 08/19/18 08/19/18 08/19/18 08/19/18 09:10 09:14 09:20 09:25 Temp 98.3 Pulse ??? 59 87 Resp 16 B/P (MAP) 109/55 109/55 (73) Pulse Ox 95 91 O2 Delivery Room Air 08/19/18 08/19/18 08/19/18 08/19/18 09:30 09:40 09:55 10:00 Pulse 80 71 B/P (MAP) 114/64 (81) 98/46 (63) Pulse Ox 94 95 08/19/18 08/19/18 08/19/18 08/19/18 10:10 10:25 10:30 10:40 Pulse 64 63 62 B/P (MAP) 91/48 (62) Pulse Ox 93 93 95 08/19/18 08/19/18 10:55 11:00 Pulse 58 B/P (MAP) 92/48 (63) Pulse Ox 88 Physical Exam General Appearance: The patient is alert, has no immediate need for airway protection and no current signs of toxicity. Eyes: Pupils equal and round no injection. Respiratory: Chest is non tender, lungs are clear to auscultation. Cardiac: regular rate and rhythm Gastrointestinal: Abdomen is soft and non tender, no masses, bowel sounds normal . Extremities have full range of motion and are non tender. Skin: No rashes or lesions. DIFFERENTIAL DIAGNOSIS: After history and physical exam differential diagnosis was considered for abdominal pain including but not limited to appendicitis, cholecystitis, gastritis and urinary tract infection. Medical Decision Making Data Points Result Diagram: 08/19/1892608/19/18926 Laboratory Hematology Test 08/19/18 09:27 08/19/18 11:07 Red Blood Count 5.60 M/uL (4.17-5.56) Mean Corpuscular Volume 82.1 fL (80.0-96.0) Mean Corpuscular Hemoglobin 27.9 pg (26.0-33.0) Mean Corpuscular Hemoglobin Concent 34.0 g/dL (32.0-36.0) Red Cell Distribution Width 14.5 % (11.5-14.5) Mean Platelet Volume 8.4 fL (7.2-11.1) Neutrophils (%) (Auto) 77.1 % (39.4-72.5) Lymphocytes (%) (Auto) 14.4 % (17.6-49.6) Monocytes (%) (Auto) 6.6 % (4.1-12.4) Eosinophils (%) (Auto) 1.2 % (0.4-6.7) Basophils (%) (Auto) 0.7 % (0.3-1.4) Nucleated RBC Relative Count (auto) 0.0 /100WBC Neutrophils # (Auto) 11.6 K/uL (2.0-7.4) Lymphocytes # (Auto) 2.2 K/uL (1.3-3.6) Monocytes # (Auto) 1.0 K/uL (0.3-1.0) Eosinophils # (Auto) 0.2 K/uL (0.0-0.5) Basophils # (Auto) 0.1 K/uL (0.0-0.1) Nucleated RBC Absolute Count (auto) 0.01 K/uL Sodium Level 140 mmol/L (137-145) Potassium Level 4.2 mmol/L (3.5-5.0) Chloride Level 110 mmol/L (98-107) Carbon Dioxide Level 19 mmol/L (22-31) Blood Urea Nitrogen 18 mg/dl (7-18) Creatinine 0.80 mg/dl (0.52-1.04) Glomerular Filtration Rate Calc > 60.0 Random Glucose 92 mg/dl (75-110) Calcium Level 9.8 mg/dl (8.4-10.2) Total Bilirubin 0.4 mg/dl (0.2-1.3) Aspartate Amino Transf (AST/SGOT) 28 U/L (0-35) Alanine Aminotransferase (ALT/SGPT) 27 U/L (0-56) Alkaline Phosphatase 80 U/L (0-126) Total Protein 8.5 g/dl (6.3-8.2) Albumin 4.8 g/dl (3.5-5.0) Human Chorionic Gonadotropin, Qual Negative (NEGATIVE) Urine Color Yellow Urine Clarity Slightly-cloudy Urine pH 5.0 pH (4.8-9.5) Urine Specific [place] 1.018 Urine Protein Negative mg/dL (NEGATIVE) Urine Glucose (UA) Negative mg/dL (NEGATIVE) Urine Ketones Negative mg/dL (NEGATIVE) Urine Blood Negative (NEGATIVE) Urine Nitrite Negative (NEGATIVE) Urine Bilirubin Negative (NEGATIVE) Urine Urobilinogen Negative mg/dL (0.2-1.9) Urine Leukocyte Esterase Small (NEGATIVE) Urine RBC None /HPF (0-2/HPF) Urine WBC 2 /HPF (0-5/HPF) Urine Squamous Epithelial Cells Many /LPF (</=FEW) Urine Bacteria Few /HPF (NONE-FEW) Urine Mucus Few /HPF (NONE-FEW) Chemistry Test 08/19/18 09:27 08/19/18 11:07 White Blood Count 15.1 k/uL (4.5-11.0) Red Blood Count 5.60 M/uL (4.17-5.56) Hemoglobin 15.6 g/dL (12.0-16.0) Hematocrit 46.0 % (34.0-47.0) Mean Corpuscular Volume 82.1 fL (80.0-96.0) Mean Corpuscular Hemoglobin 27.9 pg (26.0-33.0) Mean Corpuscular Hemoglobin Concent 34.0 g/dL (32.0-36.0) Red Cell Distribution Width 14.5 % (11.5-14.5) Platelet Count 306 K/uL (150-450) Mean Platelet Volume 8.4 fL (7.2-11.1) Neutrophils (%) (Auto) 77.1 % (39.4-72.5) Lymphocytes (%) (Auto) 14.4 % (17.6-49.6) Monocytes (%) (Auto) 6.6 % (4.1-12.4) Eosinophils (%) (Auto) 1.2 % (0.4-6.7) Basophils (%) (Auto) 0.7 % (0.3-1.4) Nucleated RBC Relative Count (auto) 0.0 /100WBC Neutrophils # (Auto) 11.6 K/uL (2.0-7.4) Lymphocytes # (Auto) 2.2 K/uL (1.3-3.6) Monocytes # (Auto) 1.0 K/uL (0.3-1.0) Eosinophils # (Auto) 0.2 K/uL (0.0-0.5) Basophils # (Auto) 0.1 K/uL (0.0-0.1) Nucleated RBC Absolute Count (auto) 0.01 K/uL Glomerular Filtration Rate Calc > 60.0 Calcium Level 9.8 mg/dl (8.4-10.2) Total Bilirubin 0.4 mg/dl (0.2-1.3) Aspartate Amino Transf (AST/SGOT) 28 U/L (0-35) Alanine Aminotransferase (ALT/SGPT) 27 U/L (0-56) Alkaline Phosphatase 80 U/L (0-126) Total Protein 8.5 g/dl (6.3-8.2) Albumin 4.8 g/dl (3.5-5.0) Human Chorionic Gonadotropin, Qual Negative (NEGATIVE) Urine Color Yellow Urine Clarity Slightly-cloudy Urine pH 5.0 pH (4.8-9.5) Urine Specific [place] 1.018 Urine Protein Negative mg/dL (NEGATIVE) Urine Glucose (UA) Negative mg/dL (NEGATIVE) Urine Ketones Negative mg/dL (NEGATIVE) Urine Blood Negative (NEGATIVE) Urine Nitrite Negative (NEGATIVE) Urine Bilirubin Negative (NEGATIVE) Urine Urobilinogen Negative mg/dL (0.2-1.9) Urine Leukocyte Esterase Small (NEGATIVE) Urine RBC None /HPF (0-2/HPF) Urine WBC 2 /HPF (0-5/HPF) Urine Squamous Epithelial Cells Many /LPF (</=FEW) Urine Bacteria Few /HPF (NONE-FEW) Urine Mucus Few /HPF (NONE-FEW) Urinalysis Test 08/19/18 11:07 Urine Color Yellow Urine Clarity Slightly-cloudy Urine pH 5.0 pH (4.8-9.5) Urine Specific [place] 1.018 Urine Protein Negative mg/dL (NEGATIVE) Urine Glucose (UA) Negative mg/dL (NEGATIVE) Urine Ketones Negative mg/dL (NEGATIVE) Urine Blood Negative (NEGATIVE) Urine Nitrite Negative (NEGATIVE) Urine Bilirubin Negative (NEGATIVE) Urine Urobilinogen Negative mg/dL (0.2-1.9) Urine Leukocyte Esterase Small (NEGATIVE) Urine RBC None /HPF (0-2/HPF) Urine WBC 2 /HPF (0-5/HPF) Urine Squamous Epithelial Cells Many /LPF (</=FEW) Urine Bacteria Few /HPF (NONE-FEW) Urine Mucus Few /HPF (NONE-FEW) ED Course/Re-evaluation ED Course 33-year-old female with an acute episode of nausea vomiting and diarrhea. No abdominal pain. She is status post cholecystectomy. Reason for imaging. UA and hCG both negative. She does have a leukocytosis that is consistent with a likely viral gastroenteritis. She is improved after 2 L of normal saline and Zofran. She is taking by mouth in the emergency department. She will be discharged with a RX for Zofran. Decision to Disposition Date: Aug 19, 2018 Decision to Disposition Time: 14:26 Depart Departure Latest Vital Signs Vital Signs Date Time Temp Pulse Resp B/P (MAP) Pulse Ox O2 Delivery O2 Flow Rate FiO2 08/19/18 11:00 92/48 (63) 08/19/18 10:55 58 88 08/19/18 09:14 98.3 16 Room Air Impression: Primary Impression: Acute vomiting Condition: Improved Disposition: HOME OR SELF-CARE Referrals: JAYCE BOLDEN MD (PCP) New Scripts Ondansetron Hcl (ZOFRAN) 4 Mg Tablet 4 MG PO Q12H for 3 Days, #20 TAB Prov: KAVYA OBRIEN MD 08/19/18 Patient Instructions: Acute Nausea and Vomiting (ED) KAVYA OBRIEN MD Aug 19, 2018 09:45
[2018-08-19 09:47] LABS: PLATELET COUNT, AUTOMATED 306 K/uL (150-450)
[2018-08-19] MEDS ORDERED: ONDA4TAB97 PO (14:26)
[2018-08-19 14:30] VITALS: BP 105/63
== END 2018-08-19 14:36 | disposition home or self-care (01) ==
LOC: ER 09:50
DX: R11.0 Nausea (principal)
CPT/HCPCS: 81001; 84703; 85025; 87088; 96361; 96374; 96376; 99284; J2405; J7030; 82040; 82247; 82310; 82374; 82435; 82565; 82947; 84075; 84132; 84155; 84295; 84450; 84460; 84520

== ENCOUNTER 2018-11-21 16:05 | Emergency (ER) | payer OTHER ==
[2018-01-24 20:22] VITALS: Wt 105.2 kg
[~2018-11-21 16:05] MED LIST changes: +CEPH500T7 PO; +ONDA4TAB97 PO
--- NOTE | 2018-11-21 16:18 | ER Report ---
History and Physical Time Seen By MD: 16:18 Hx. of Stated Complaint: PT WAS CUTTING ZUCCHINI AND SLICED OFF TOP OF R INDEX FINGER HPI/ROS CHIEF COMPLAINT: Finger injury HISTORY OF PRESENT ILLNESS: This is a 33-year-old female presents to emergency department for a right index finger injury. Patient states she was using the Ventolin at home, cutting some zucchini and cut the very tip of her right index finger off. She did collect the piece of skin that was all. Brought in for evaluation to see if she could have this reattached. The pieces so small I did tell her that the piece of skin would not be worth attempting to reattach. She has moderate bleeding, is controlled with pressure. She does have pain to the falls area. Fingernail intact. No other complaints. No numbness or tingling. No nausea or vomiting. Allergies: Coded Allergies: Sulfa (Sulfonamide Antibiotics) (Verified Allergy, Severe, ANAPHYLAXIS, 06/28/18) THROAT SWELLS, verified 12/31/17 Penicillins (Verified Allergy, Mild, HIVES, 06/28/18) verified 12/31/17 mold (Unverified Allergy, Mild, 06/28/18) Home Meds Active Scripts Sertraline Hcl (SERTRALINE HCL) 100 Mg Tablet, 2 TAB PO QDAY, #240 TAB 6 Refills Prov:JAYCE BOLDEN MD 03/16/18 Discontinued Reported Medications Vit W-Ca,Fe,FA(<1 mg) ( Vitamins) 1 Each Tablet 01/04/18 Discontinued Scripts Fluconazole (DIFLUCAN) 150 Mg Tablet, 150 MG PO DIRECTED, #2 TAB 0 Refills 1 tab PO then repeat in 3 days Prov:JAYCE BOLDEN MD 10/14/18 Cephalexin 500 Mg Tab (KEFLEX 500 MG TAB) 500 Mg Tablet, 500 MG PO TID, #42 TAB 0 Refills Prov:JAYCE BOLDEN MD 10/14/18 Past Medical/Surgical History Patient has a past medical and surgical history of DVT, pulmonary embolus, gallbladder disease, cholecystectomy, wears glasses. Reviewed Nurses Notes: Yes Hx Smoking: No Smoking Status: Never Smoker Exposure to Second Hand Smoke?: No Hx Substance Use Disorder: No Constitutional Vital Sign - Last 24 Hours 11/21/18 11/21/18 16:11 17:26 Temp 98.1 Pulse 91 Resp 18 B/P (MAP) 124/73 99/50 (66) Pulse Ox 92 O2 Delivery Room Air Physical Exam General appearance: Alert no distress. Respiratory: Chest is non tender, lungs are clear to auscultation. Cardiac: Regular rate and rhythm. Integument: Small hole's area to the palmar side of the right index finger at the tip, bleeding is controlled, no deep structures involved. DIFFERENTIAL DIAGNOSIS: After history and physical exam differential diagnosis was considered for avulsion. Medical Decision Making ED Course/Re-evaluation ED Course The patient was admitted to room. A history of physical were obtained. Differential diagnoses were considered. The avulsed area on the finger was not large enough to reattach, discussed this with the patient, I did digitally block the index finger which did provide significant relief of the patient's symptoms, the wound was cleansed and irrigated. A clotting adhesive and nonstick dressing with tube gauze was applied to the index finger, patient tolerated well. Was instructed to monitor closely for signs of infection. Return to the ER for any other concerns or worsening symptoms, patient expressed understanding, was agreeable with this plan care and discharged home. Tetanus was up-to-date. Decision to Disposition Date: Nov 21, 2018 Decision to Disposition Time: 17:31 Depart Departure Latest Vital Signs Vital Signs Date Time Temp Pulse Resp B/P (MAP) Pulse Ox O2 Delivery O2 Flow Rate FiO2 11/21/18 17:26 99/50 (66) 11/21/18 16:11 98.1 91 18 92 Room Air Impression: Primary Impression: Avulsion of skin of finger Condition: Improved Disposition: HOME OR SELF-CARE Referrals: JAYCE BOLDEN MD (PCP) Patient Instructions: Acute Wound Care (ED) Additional Instructions: Keep wound dry for 48 hours. Monitor for signs of infection; redness, swelling, heat, discharge, increasing pain or red streaking. Take Tylenol or Ibuprofen as needed for pain. Return to the ER with any concerns. You may change dressing as needed. Problem Qualifiers Primary Impression: Avulsion of skin of finger Encounter type: initial encounter Qualified Codes: S61.209A - Unspecified open wound of unspecified finger without damage to nail, initial encounter LOI FRYEP-ASHLYN Nov 21, 2018 16:18
[2018-11-21 17:26] VITALS: BP 99/50
== END 2018-11-21 17:35 | disposition home or self-care (01) ==
LOC: ER 16:14
DX: S61.209A Unspecified open wound of unspecified finger without damage to nail, initial encounter (principal)
CPT/HCPCS: 99282

== ENCOUNTER 2018-12-08 06:55 | Outpatient (RCR) | payer OTHER ==
[2018-01-24 20:22] VITALS: BMI 42.8
[2018-12-07 10:20] LABS: PLATELET COUNT, AUTOMATED 220 K/uL (150-450)
[~2018-12-08 06:55] MED LIST changes: +LEVO750T44 PO; +PRED20TA6 PO
--- NOTE | 2018-12-08 14:23 | RADIOLOGY IMAGING REPORT ---
FACILITY: [facility] PATIENT NAME: Norma Parks : 1985 MR: [id number] V: [id number] EXAM DATE: ORDERING PHYSICIAN: GARETH HERRERA TECHNOLOGIST: Location: [facility] - [place] Patient: Norma Parks : 1985 Visit/Account:[id number] Date of Sevice: 12/08/2018 CT SINUS W/O CON COMPARISONS: None ADDITIONAL PERTINENT HISTORY: Recurrent sinusitis with left maxillary tenderness TECHNIQUE: Multiple axial images were obtained through the paranasal sinuses with coronal and sagitta l reformatted images. No IV contrast was administered. One of the following dose optimization techni ques was utilized in the performance of this exam: Automated exposure control; adjustment of the mA a nd/or kV according to the patient's size; or use of an iterative reconstruction technique. Specific details can be referenced in the facility's radiology CT exam operational policy. FINDINGS: Maxillary sinuses: Marked mucosal thickening involving the left maxillary sinus.. Frontal sinuses: Complete opacification of the left frontal sinus.. Ethmoid air cells: Near-complete opacification of the anterior and posterior left ethmoid air cells.. Sphenoid sinuses: Near-complete opacification of the left sphenoid sinus.. Nasal septum: Mild nasal septal deviation to the right.. Drainage pathways: Opacification at the level of the left ostiomeatal complex as well as the left fro ntal recess and the left sphenoid ethmoid recess. The right-sided drainage pathways are patent. Paranasal variance: Moderate sized left-sided lauren bullosa which is completely opacified. Medial orbital schaefer, cribriform plate, and orbital floors: Negative. Visualized bony skull base Negative. Visualized intracranial contents: Negative. Orbits and surrounding soft tissues: Negative. IMPRESSION: 1. Obstructive severe paranasal sinus disease involving the left maxillary sinus, left frontal sinus, the anterior posterior left ethmoid air cells and the left sphenoid sinus. 2. Mild nasal septal deviation to the right. 3. Completely opacified moderate sized left-sided lauren bullosa. Report Dictated By: Berlin Whittington MD at 12/08/2018 2:13 PM Report E-Signed By: Berlin Whittington MD at 12/08/2018 2:18 PM WSN:[id number]
[2018-12-14] MEDS ORDERED: BUTA1CAP6 PO (10:19)
[2018-12-14] MEDS ORDERED: DOXY-179 PO (10:36)
[2018-12-14] MEDS ORDERED: PRED20TA6 PO (10:36)
== END 2018-12-08 18:00 | disposition home or self-care (01) ==
LOC: CT 06:55
PROVIDERS: ATTEND Nurse Practitioner Primary Care
DX: J32.9 Chronic sinusitis, unspecified (principal); J34.2 Deviated nasal septum
CPT/HCPCS: 36415; 70486; 85025; 85651; 86140

== ENCOUNTER 2019-02-07 04:04 | Day surgery (SDC) | payer OTHER ==
[2018-01-24 20:22] VITALS: Ht 167.6 cm; Wt 101.6 kg
[2019-02-07] VITALS (7 sets, daily range): BP systolic 92–126; BP diastolic 46–72
[~2019-02-07] VITALS: Ht 167.6 cm; Wt 101.6 kg
[~2019-02-07 04:04] MED LIST changes: +BUTA1CAP6 PO; +DOXY-179 PO
[2019-02-07] MEDS ORDERED: CLINDAMYCIN(*) 600 MG/NS 50 ML 50 ML IVPB ONE (07:00)
[2019-02-07] MEDS ORDERED: fentaNYL CITR 100 MCG/2 ML AMP ONE ×2 (09:19→10:56)
[2019-02-07] MEDS ORDERED: LIDOCAINE MPF 1% 5 ML VIAL ONE (09:19)
[2019-02-07] MEDS ORDERED: ONDANSETRON 4 MG/2 ML VIAL ONE (09:19)
[2019-02-07] MEDS ORDERED: PROPOFOL EMUL(*) 10MG/ML 20 ML 20 ML ONE (09:19)
[2019-02-07] MEDS ORDERED: KETAMINE HCL-NS 50 MG/5 ML SYR ONE (09:19)
[2019-02-07] MEDS ORDERED: DEXAMETHASONE SOD PHOS 10MG/ML ONE (09:19)
[2019-02-07] MEDS ORDERED: FAMOTIDINE 20 MG TAB PO ONE (09:50)
[2019-02-07] MEDS ORDERED: NORMOSOL R SOLN(*) 1000 ML BAG 1,000 ML IV PRN (09:50)
[2019-02-07] MEDS ORDERED: LIDO/EPI 1% MDV 1:100,000 20ML INFIL ONE (09:50)
[2019-02-07] MEDS ORDERED: NS(*) 0.9% 250 ML BAG 250 ML ONE (09:50)
[2019-02-07] MEDS ORDERED: MIDAZOLAM 2 MG/2 ML VIAL IVP PRN (09:50)
[2019-02-07] MEDS ORDERED: LIDOCAINE/SOD BICARB 8.4% SYR ID ONE (09:50)
[2019-02-07] MEDS ORDERED: BACITRACIN OINT 15 GM TUBE TP ONE (09:50)
[2019-02-07] MEDS ORDERED: ePHEDrine 25 MG/5 ML DISP.SYR IVP ONE (09:59)
[2019-02-07] MEDS ORDERED: DOXY-181 PO (11:09)
[2019-02-07] MEDS ORDERED: HYDR-653 PO (11:10)
[2019-02-07] MEDS ORDERED: APAP/HYDROCODONE 325/5 TAB PO PRN (12:25)
--- NOTE | 2019-02-07 12:56 | OPERATIVE REPORT 1 ---
EVENT DATE: February 07, 2019 SURGEON: Pan Salvador MD ANESTHESIOLOGIST: Patrice Parmar MD ANESTHESIA: LMA. PREOPERATIVE DIAGNOSIS Chronic left frontal ethmoid, maxillary and sphenoid sinusitis. POSTOPERATIVE DIAGNOSIS Chronic left frontal ethmoid, maxillary and sphenoid sinusitis. PROCEDURE PERFORMED 1. Left frontal sinusotomy. 2. Left total ethmoidectomy. 3. Left maxillary antrostomy. 4. Left sphenoidectomy. INDICATIONS Please refer to preoperative note. DESCRIPTION OF PROCEDURE The patient was positively identified in the preoperative area. She was accompanied there by her . Risks were again explained, including but not limited to, bleeding, infection, injury of the orbit, vision changes, injury to the skull, cerebrospinal fluid leak and those associated with anesthesia. She acknowledged understanding those risks. I again reviewed the patient's preoperative CT of the sinuses. This was notable for opacification of the left frontal, ethmoid, maxillary and sphenoid sinuses. The patient was then brought back to the operative suite, laid supine on the operative table and anesthesia was administered. Once asleep, the patient was positioned and prepped and draped in usual sterile fashion. Both nasal cavities were initially decongested by placing cottonoids containing Afrin solution. These were subsequently removed. A nasal endoscopy was performed. A left frontal sinuplasty was performed with the balloon sinuplasty system. Approximately 0.5 cc of 1% lidocaine with epinephrine was infiltrated in the lateral nasal wall. An uncinectomy was performed. The natural maxillary ostium was identified and this was widened with back-biting forceps and the microdebrider blade. A total ethmoidectomy was performed. A sphenoidectomy was performed. NasoPore was placed between the middle turbinate and the lateral nasal wall. The patient was then turned to Anesthesia for emergence. ESTIMATED BLOOD LOSS 25 mL. COMPLICATIONS No complications. MTDD
[2019-02-07] MEDS ORDERED: OXYMETAZOLINE SPRAY 15 ML BTL ONE (12:58)
== END 2019-02-07 12:03 | disposition home or self-care (01) ==
LOC: OR 04:04
PROVIDERS: ATTEND Otolaryngology
DX: J32.2 Chronic ethmoidal sinusitis (principal); J32.3 Chronic sphenoidal sinusitis; J32.1 Chronic frontal sinusitis
CPT/HCPCS: 31090; 81025; C1726; C1769; C1887; J1100; J2001; J2405; J2704; J3010; J3490; J7050

== ENCOUNTER 2019-03-09 17:03 | Emergency (ER) | payer OTHER ==
[2018-01-24 20:22] VITALS: BMI 42.8
[~2019-03-09 17:03] MED LIST changes: +DOXY-181 PO
--- NOTE | 2019-03-09 17:09 | ER Report ---
History and Physical Time Seen By MD: 17:06 HPI/ROS CHIEF COMPLAINT: Shakiness and lightheadedness HISTORY OF PRESENT ILLNESS: This is a 33-year-old female who presents to the emergency department for lightheadedness and shakiness. Patient states that 3 days ago she developed some lightheadedness and shakiness, seemed to have mostly resolved of the following day she felt okay, then yesterday he returned, today significantly worse, she feels very shaky, has lightheadedness, palpitations denies chest pain or shortness of breath. She states that she was ill last week with a GI bug that caused diarrhea however that resolved Thursday. She also states that she had similar symptomology number of years ago when she was diagnosed with PEs and DVTs. She became very nervous today decided come in for further evaluation. She also states that when she moves from a lying position to a standing position she gets very lightheaded and unsteady. She also states that she's had an insatiable thirst today. No history of diabetes. No rashes or headaches. Normal bowel movement today, no dysuria. REVIEW OF SYSTEMS: Constitutional: No fever, no chills. Eyes: No discharge. ENT: No sore throat. Cardiovascular: As above. Respiratory: No cough, no shortness of breath. Gastrointestinal: As above. Genitourinary: No hematuria. Musculoskeletal: No back pain. Skin: No rashes. Neurological: As above. Allergies: Coded Allergies: Sulfa (Sulfonamide Antibiotics) (Verified Allergy, Severe, ANAPHYLAXIS, 03/09/19) THROAT SWELLS, verified 12/31/17 Penicillins (Verified Allergy, Mild, HIVES, 03/09/19) verified 12/31/17 mold (Unverified Allergy, Mild, 03/09/19) Home Meds Active Scripts Butalb/Acetaminophen/Caffeine (FIORICET 50-300-40) 1 Each Capsule, 1-2 CAP PO Q4-6H PRN for MIGRAINE, #12 CAPSULE 0 Refills Prov:GARETH HERRERA DNP, DATABASE PROGRAMMER-BC 12/14/18 Sertraline Hcl (SERTRALINE HCL) 100 Mg Tablet, 2 TAB PO QDAY, #240 TAB 6 Refills Prov:JAYCE BOLDEN MD 03/16/18 Discontinued Reported Medications Hydrocodone Bit/Acetaminophen (NORCO 5-325 TABLET) 1 Each Tablet, 1-2 EACH PO Q6H PRN for pain, #20 TAB 02/07/19 Doxycycline Hyclate (DOXYCYCLINE HYCLATE) 100 Mg Capsule, 100 MG PO BID for 7 Days, #14 CAPSULE 02/07/19 Past Medical/Surgical History Patient has a past medical and surgical history of chronic sinus infections, sinus surgery, wears glasses, DVT, cholecystectomy, tubal ligation, bilateral salpingectomy, , depression, anxiety. Hx Smoking: No Smoking Status: Never Smoker Exposure to Second Hand Smoke?: No Hx Substance Use Disorder: No Hx Alcohol Use: No Constitutional Vital Sign - Last 24 Hours 03/09/19 03/09/19 03/09/19 03/09/19 17:07 17:30 18:00 18:30 Temp 98.6 Pulse 93 83 89 Resp 20 31 15 B/P (MAP) 133/81 120/63 (82) 115/70 (85) Pulse Ox 91 93 91 93 O2 Delivery Room Air Physical Exam General Appearance: The patient is alert, has no immediate need for airway protection and no signs of toxicity. Eyes: 3mm Pupils equal and round no pallor or injection. EOMs intact, the exam did cause dizziness. ENT, Mouth: Mucous membranes are moist. Respiratory: There are no retractions, lungs are clear to auscultation. Cardiovascular: Regular rate and rhythm. No murmurs, clicks or rubs. Gastrointestinal: Abdomen is soft and non tender, no masses, bowel sounds normal. Neurological: Alert and oriented 4. Moving all extremities. Following all commands. No focal neuro deficits. Skin: Warm and dry, no rashes. Musculoskeletal: Neck is supple non tender. Extremities are nontender, nonswollen and have full range of motion. DIFFERENTIAL DIAGNOSIS: After history and physical exam differential diagnosis was considered for dizziness including but not limited to peripheral and central causes of vertigo, orthostatic causes including dehydration, and blood loss. Medical Decision Making Data Points Result Diagram: 03/09/19 1713 03/09/19 1713 Laboratory Hematology Test 03/09/19 17:13 03/09/19 17:55 03/09/19 18:20 Red Blood Count 4.80 M/uL (4.17-5.56) Mean Corpuscular Volume 80.7 fL (80.0-96.0) Mean Corpuscular Hemoglobin 28.0 pg (26.0-33.0) Mean Corpuscular Hemoglobin Concent 34.7 g/dL (32.0-36.0) Red Cell Distribution Width 13.9 % (11.5-14.5) Mean Platelet Volume 8.2 fL (7.2-11.1) Neutrophils (%) (Auto) 51.6 % (39.4-72.5) Lymphocytes (%) (Auto) 38.1 % (17.6-49.6) Monocytes (%) (Auto) 6.5 % (4.1-12.4) Eosinophils (%) (Auto) 3.0 % (0.4-6.7) Basophils (%) (Auto) 0.8 % (0.3-1.4) Nucleated RBC Relative Count (auto) 0.1 /100WBC Neutrophils # (Auto) 4.1 K/uL (2.0-7.4) Lymphocytes # (Auto) 3.0 K/uL (1.3-3.6) Monocytes # (Auto) 0.5 K/uL (0.3-1.0) Eosinophils # (Auto) 0.2 K/uL (0.0-0.5) Basophils # (Auto) 0.1 K/uL (0.0-0.1) Nucleated RBC Absolute Count (auto) 0.01 K/uL Sodium Level 139 mmol/L (137-145) Potassium Level 3.9 mmol/L (3.5-5.0) Chloride Level 104 mmol/L (98-107) Carbon Dioxide Level 22 mmol/L (22-31) Blood Urea Nitrogen 20 mg/dl (7-18) Creatinine 0.90 mg/dl (0.52-1.04) Glomerular Filtration Rate Calc > 60.0 Random Glucose 85 mg/dl (75-110) Osmolality 284 mOSM/K (275-295) Calcium Level 9.4 mg/dl (8.4-10.2) Total Bilirubin 0.4 mg/dl (0.2-1.3) Aspartate Amino Transf (AST/SGOT) 44 U/L (0-35) Alanine Aminotransferase (ALT/SGPT) 44 U/L (0-56) Alkaline Phosphatase 94 U/L (0-126) Total Protein 7.9 g/dl (6.3-8.2) Albumin 4.8 g/dl (3.5-5.0) Human Chorionic Gonadotropin, Qual Negative (NEGATIVE) D-Dimer Quantitative (PE/DVT) 0.91 ug/ml (0-0.50) Urine Color Colorless Urine Clarity Clear Urine pH 5.0 pH (4.8-9.5) Urine Specific [place] 1.002 Urine Protein Negative mg/dL (NEGATIVE) Urine Glucose (UA) Negative mg/dL (NEGATIVE) Urine Ketones Negative mg/dL (NEGATIVE) Urine Blood Negative (NEGATIVE) Urine Nitrite Negative (NEGATIVE) Urine Bilirubin Negative (NEGATIVE) Urine Urobilinogen Negative mg/dL (0.2-1.9) Urine Leukocyte Esterase Negative (NEGATIVE) Urine RBC <1 /HPF (0-2/HPF) Urine WBC <1 /HPF (0-5/HPF) Urine Squamous Epithelial Cells Many /LPF (</=FEW) Urine Bacteria Negative /HPF (NONE-FEW) Urine Mucus None /HPF (NONE-FEW) Chemistry Test 03/09/19 17:13 03/09/19 17:55 03/09/19 18:20 White Blood Count 7.9 k/uL (4.5-11.0) Red Blood Count 4.80 M/uL (4.17-5.56) Hemoglobin 13.4 g/dL (12.0-16.0) Hematocrit 38.7 % (34.0-47.0) Mean Corpuscular Volume 80.7 fL (80.0-96.0) Mean Corpuscular Hemoglobin 28.0 pg (26.0-33.0) Mean Corpuscular Hemoglobin Concent 34.7 g/dL (32.0-36.0) Red Cell Distribution Width 13.9 % (11.5-14.5) Platelet Count 237 K/uL (150-450) Mean Platelet Volume 8.2 fL (7.2-11.1) Neutrophils (%) (Auto) 51.6 % (39.4-72.5) Lymphocytes (%) (Auto) 38.1 % (17.6-49.6) Monocytes (%) (Auto) 6.5 % (4.1-12.4) Eosinophils (%) (Auto) 3.0 % (0.4-6.7) Basophils (%) (Auto) 0.8 % (0.3-1.4) Nucleated RBC Relative Count (auto) 0.1 /100WBC Neutrophils # (Auto) 4.1 K/uL (2.0-7.4) Lymphocytes # (Auto) 3.0 K/uL (1.3-3.6) Monocytes # (Auto) 0.5 K/uL (0.3-1.0) Eosinophils # (Auto) 0.2 K/uL (0.0-0.5) Basophils # (Auto) 0.1 K/uL (0.0-0.1) Nucleated RBC Absolute Count (auto) 0.01 K/uL Glomerular Filtration Rate Calc > 60.0 Osmolality 284 mOSM/K (275-295) Calcium Level 9.4 mg/dl (8.4-10.2) Total Bilirubin 0.4 mg/dl (0.2-1.3) Aspartate Amino Transf (AST/SGOT) 44 U/L (0-35) Alanine Aminotransferase (ALT/SGPT) 44 U/L (0-56) Alkaline Phosphatase 94 U/L (0-126) Total Protein 7.9 g/dl (6.3-8.2) Albumin 4.8 g/dl (3.5-5.0) Human Chorionic Gonadotropin, Qual Negative (NEGATIVE) D-Dimer Quantitative (PE/DVT) 0.91 ug/ml (0-0.50) Urine Color Colorless Urine Clarity Clear Urine pH 5.0 pH (4.8-9.5) Urine Specific [place] 1.002 Urine Protein Negative mg/dL (NEGATIVE) Urine Glucose (UA) Negative mg/dL (NEGATIVE) Urine Ketones Negative mg/dL (NEGATIVE) Urine Blood Negative (NEGATIVE) Urine Nitrite Negative (NEGATIVE) Urine Bilirubin Negative (NEGATIVE) Urine Urobilinogen Negative mg/dL (0.2-1.9) Urine Leukocyte Esterase Negative (NEGATIVE) Urine RBC <1 /HPF (0-2/HPF) Urine WBC <1 /HPF (0-5/HPF) Urine Squamous Epithelial Cells Many /LPF (</=FEW) Urine Bacteria Negative /HPF (NONE-FEW) Urine Mucus None /HPF (NONE-FEW) Coagulation Test 03/09/19 17:55 D-Dimer Quantitative (PE/DVT) 0.91 ug/ml Urinalysis Test 03/09/19 18:20 Urine Color Colorless Urine Clarity Clear Urine pH 5.0 pH (4.8-9.5) Urine Specific [place] 1.002 Urine Protein Negative mg/dL (NEGATIVE) Urine Glucose (UA) Negative mg/dL (NEGATIVE) Urine Ketones Negative mg/dL (NEGATIVE) Urine Blood Negative (NEGATIVE) Urine Nitrite Negative (NEGATIVE) Urine Bilirubin Negative (NEGATIVE) Urine Urobilinogen Negative mg/dL (0.2-1.9) Urine Leukocyte Esterase Negative (NEGATIVE) Urine RBC <1 /HPF (0-2/HPF) Urine WBC <1 /HPF (0-5/HPF) Urine Squamous Epithelial Cells Many /LPF (</=FEW) Urine Bacteria Negative /HPF (NONE-FEW) Urine Mucus None /HPF (NONE-FEW) EKG/Imaging EKG Interpretation 12 lead EKG: Time of EKG 3. Rhythm: Normal sinus rhythm, ventricular rate 76 bpm. Stephen: normal QRS: normal ST segments: No ST depression or elevation identified. No previous EKGs for comparison. Imaging PATIENT NAME: Norma Parks : 1985 MR: [id number] V: [id number] EXAM DATE: ORDERING PHYSICIAN: LOI FRYE TECHNOLOGIST: Location: [facility] Patient: Norma Parks : 1985 Visit/Account:[id number] Date of Sevice: 03/09/2019 CT angiogram chest with contrast Indication: Elevated d-dimer, shakiness, palpitations. History of PE. Comparison: None available. Technique: Axial CT images are obtained through the chest after administration of 75 mL Isovue 370 IV contrast. Reformatted coronal and sagittal images were reviewed as well as coronal MIP images. One of the following dose optimization techniques was utilized in the performance of this exam: automated exposure control; adjustment of the mA and/or kV according to the patient's size; or use of an iterative reconstruction technique. Specific details can be referenced in the facility's radiology CT exam operational policy. FINDINGS: No evidence of filling defect within the pulmonary vasculature to suggest pulmonary embolus. Heart is normal size without pericardial effusion. Aorta shows no aneurysm or dissection. Mediastinum and hilar regions show no enlarged lymph nodes or abnormal density. Lungs show no consolidations, pleural effusion or pneumothorax. There is a 2 mm pleural-based nodule in the right lower lobe. As this is less than 6 mm, no further evaluation. No other nodules. No focal interstitial opacities. A irways are clear. Bony structures show no acute fractures or aggressive bony lesions. Chest wall shows no enlarged axillary lymph nodes or masses. Small hiatal hernia. Upper abdomen is otherwise unremarkable. IMPRESSION: 1. No evidence of pulmonary embolus. 2. No acute cardiothoracic abnormality 3. Small hiatal hernia. Report Dictated By: Porfirio Peres at 03/09/2019 8:10 PM Report E-Signed By: Porfirio Peres at 03/09/2019 8:17 PM [email or web address] ED Course/Re-evaluation Clinical Indication for ER IV: Hydration, IV Access ED Course The patient was admitted to room. A history and physical obtained. Differential diagnoses were considered. An IV was started. A CBC, CMP, d-dimer were obtained. A 1 L normal saline bolus was given. Patient's bedside glucose was 86 mg/dL. D- dimer was elevated at 0.91. EKG showing normal sinus rhythm. I reviewed this with the patient, recommending a CTA to evaluate for pulmonary embolus. No pulmonary embolus identified on CT scan, no other acute abnormalities identified. I did review the results with the patient and her bedside. I did explain to the patient that I do not have a clear answer as to what is causing her generalized symptoms, she was also concerned about seratonin syndrome, as she is not currently tachycardic, not hyperthermic nor does she have confusion or hallucinations, this is less likely. I do feel that her recent lack of sleep is contributory. I did offer ativan and benadryl to help with feeling so anxious, she did decline at this time. There could also be an anxiety component to this as well. I did tell her to follow up with her PCP or one of the partners within the next 1-2 days for reevaluation. She was agreeable with this plan of care and discharged home. Decision to Disposition Date: Mar 09, 2019 Decision to Disposition Time: 20:45 Depart Departure Latest Vital Signs Vital Signs Date Time Temp Pulse Resp B/P (MAP) Pulse Ox O2 Delivery O2 Flow Rate FiO2 03/09/19 18:30 15 115/70 (85) 93 03/09/19 18:00 89 03/09/19 17:07 98.6 Room Air Impression: Primary Impression: Postural dizziness Condition: Improved Disposition: HOME OR SELF-CARE Referrals: JAYCE BOLDEN MD (PCP) GARETH HERRERA DNP, DATABASE PROGRAMMER-BC 2 Days Patient Instructions: Dizziness (ED), Lightheadedness (ED) Additional Instructions: No concerning findings on your lab studies today. Urine exam was negative. normal EKG. The CT of your chest was normal, no evidence of a clot or any other concerning pathology. TSH results are still pending. I do feel that the lack of sleep is partially contributory, so please try to get much needed sleep. If you have any other concerns or worsening symptoms, return to the ED. Please try to follow up with your PCP or Gareth Herrera, tomorrow or Thursday for reevaluation. LOI FRYE DATABASE PROGRAMMER-BC Mar 09, 2019 17:09
[2019-03-09] MEDS ORDERED: NS(*) 0.9% 1000 ML BAG 1,000 ML IV ONE (17:15)
[2019-03-09] MEDS ORDERED: ONDANSETRON 4 MG/2 ML VIAL IVP ONE (17:35)
[2019-03-09 17:47] LABS: PLATELET COUNT, AUTOMATED 237 K/uL (150-450)
--- NOTE | 2019-03-09 17:56 | EKG ---
FACILITY: [facility] [place] PATIENT NAME: ROSANA KIMBLE : [id number] MR: [id number] V: [id number] EXAM DATE: ORDERING PHYSICIAN: LOI FRYE TECHNOLOGIST: Test Reason : Blood Pressure : / mmHG Vent. Rate : 076 BPM Atrial Rate : 076 BPM P-R Int : 152 ms QRS Dur : 096 ms QT Int : 386 ms P-R-T Axes : 046 067 027 degrees QTc Int : 434 ms Normal sinus rhythm with sinus arrhythmia Normal ECG No previous ECGs available Confirmed by SAVAGE VENTURA ([id number]) on 03/09/2019 6:19:01 PM Referred By: Confirmed By:SAVAGE VENTURA
[2019-03-09] MEDS ORDERED: NS(*) 0.9% 50 ML BAG 50 ML ONE (19:28)
[2019-03-09] MEDS ORDERED: IOPAMIDOL 76% 100 ML INFUS BTL 100 ML ONE (19:28)
--- NOTE | 2019-03-09 20:23 | RADIOLOGY IMAGING REPORT ---
[place] [facility] [place]IENT NAME: Norma Parks : 1985 MR: [id number] V: [id number] EXAM DATE: ORDERING PHYSICIAN: LOI FRYE TECHNOLOGIST: Location: Patient: Norma Parsk : 1985 Visit/Account:[id number] Date of Sevice: 03/09/2019 CT angiogram chest with contrast Indication: Elevated d-dimer, shakiness, palpitations. History of PE. Comparison: None available. Technique: Axial CT images are obtained through the chest after administration of 75 mL Isovue 370 IV contrast. Reformatted coronal and sagittal images were reviewed as well as coronal MIP images. One of the following dose optimization techniques was utilized in the performance of this exam: auto mated exposure control; adjustment of the mA and/or kV according to the patient's size; or use of an iterative reconstruction technique. Specific details can be referenced in the facility's radiology C T exam operational policy. FINDINGS: No evidence of filling defect within the pulmonary vasculature to suggest pulmonary embolus. Heart is normal size without pericardial effusion. Aorta shows no aneurysm or dissection. Mediastin um and hilar regions show no enlarged lymph nodes or abnormal density. Lungs show no consolidations, pleural effusion or pneumothorax. There is a 2 mm pleural-based nodule in the right lower lobe. As this is less than 6 mm, no further evaluation. No other nodules. No f ocal interstitial opacities. Airways are clear. Bony structures show no acute fractures or aggressive bony lesions. Chest wall shows no enlarged axi llary lymph nodes or masses. Small hiatal hernia. Upper abdomen is otherwise unremarkable. IMPRESSION: 1. No evidence of pulmonary embolus. 2. No acute cardiothoracic abnormality 3. Small hiatal hernia. Report Dictated By: Porfirio Peres at 03/09/2019 8:10 PM Report E-Signed By: Porfirio Peres at 03/09/2019 8:17 PM WSN:[email or web address]
[2019-03-09 20:30] VITALS: BP 120/55
== END 2019-03-09 21:02 | disposition home or self-care (01) ==
LOC: ER 17:36
DX: R42 Dizziness and giddiness (principal)
CPT/HCPCS: 71275; 81001; 83930; 84443; 84703; 85025; 85379; 93005; 96361; 96374; 99284; J2405; J7030; J7050; Q9967; 82040; 82247; 82310; 82374; 82435; 82565; 82947; 84075; 84132; 84155; 84295; 84450; 84460; 84520

== ENCOUNTER 2019-03-10 15:38 | Emergency (ER) | payer OTHER ==
[2018-01-24 20:22] VITALS: Wt 101.6 kg
--- NOTE | 2019-03-10 15:40 | ER Report ---
History and Physical Time Seen By MD: 15:39 (MCDONALDMEL JARVIS DO) HPI/ROS CHIEF COMPLAINT: Headache blurry vision, tremor HISTORY OF PRESENT ILLNESS: Patient is a 33-year-old female here with complaints of headaches, occipital pressure, blurry vision, tremulousness. Patient was evaluated yesterday for similar findings. Patient reportedly had a sinus surgery with Dr. Salvador, on February 07. Patient reports drinking significantly increased quantities of water today and yesterday. Serum osmolality was found be normal yesterday, EKG was unremarkable, electrolytes were stable, there is no leukocytosis, ESR was normal, CRP was mildly elevated, d-dimer was elevated prompting a CT angiogram of the chest which was negative for pulmonary embolism. Patient reports persistent symptoms prompting evaluation. TSH was also found to be normal REVIEW OF SYSTEMS: Constitutional: No fever, no chills. Eyes: No discharge. + blurry vision, dizziness ENT: No sore throat. Cardiovascular: No chest pain, no palpitations. Respiratory: No cough, no shortness of breath. Gastrointestinal: No abdominal pain, no vomiting. Genitourinary: No hematuria. Musculoskeletal: No back pain. Skin: No rashes. Neurological: + dizziness, tremulousness, anxious (MCDONALDMEL Justine DO) Allergies: Coded Allergies: Sulfa (Sulfonamide Antibiotics) (Verified Allergy, Severe, ANAPHYLAXIS, 03/10/19) THROAT SWELLS, verified 12/31/17 Penicillins (Verified Allergy, Mild, HIVES, 03/10/19) verified 12/31/17 mold (Unverified Allergy, Mild, 03/10/19) Home Meds Active Scripts Butalb/Acetaminophen/Caffeine (FIORICET 50-300-40) 1 Each Capsule, 1-2 CAP PO Q4-6H PRN for MIGRAINE, #12 CAPSULE 0 Refills Prov:GARETH HERRERA DNP, SMOG TECHNICIAN-BC 12/14/18 Sertraline Hcl (SERTRALINE HCL) 100 Mg Tablet, 2 TAB PO QDAY, #240 TAB 6 Refills Prov:JAYCE BOLDEN MD 03/16/18 Discontinued Reported Medications Hydrocodone Bit/Acetaminophen (NORCO 5-325 TABLET) 1 Each Tablet, 1-2 EACH PO Q6H PRN for pain, #20 TAB 02/07/19 Doxycycline Hyclate (DOXYCYCLINE HYCLATE) 100 Mg Capsule, 100 MG PO BID for 7 Days, #14 CAPSULE 02/07/19 Hx Smoking: No Smoking Status: Never Smoker Exposure to Second Hand Smoke?: No Hx Substance Use Disorder: No Hx Alcohol Use: No (MEL MCDONALD DO) Constitutional Vital Sign - Last 24 Hours 03/10/19 03/10/19 03/10/19 03/10/19 15:43 15:43 15:53 16:08 Temp 98.7 Pulse 99 99 97 Resp 14 B/P (MAP) 131/93 (106) 131/93 Pulse Ox 93 95 92 O2 Delivery Room Air 03/10/19 03/10/19 03/10/19 03/10/19 16:23 16:32 16:38 17:05 Pulse 97 92 B/P (MAP) 118/82 (94) 115/50 (71) Pulse Ox 94 92 03/10/19 03/10/19 03/10/19 03/10/19 17:08 17:12 17:13 17:28 Pulse 82 86 80 Pulse Ox 98 97 97 O2 Flow Rate 2.0 03/10/19 03/10/19 03/10/19 03/10/19 17:30 17:43 17:58 18:00 Pulse 83 92 B/P (MAP) 116/39 (64) 119/65 (83) Pulse Ox 97 94 03/10/19 03/10/19 03/10/19 03/10/19 18:13 18:18 18:30 18:33 Pulse 84 87 90 B/P (MAP) 125/65 (85) Pulse Ox 96 95 96 03/10/19 18:48 Pulse ??? Intake and Output 03/10/19 03/10/19 03/11/19 15:01 23:01 07:01 Intake Total 800 ml Balance 800 ml (JAKE SAMAYOA DO) Physical Exam General Appearance: The patient is alert, has no immediate need for airway protection and no signs of toxicity. Anxious appearing Eyes: Pupils equal and round no pallor or injection. No nystagmus, extraocular muscles intact ENT, Mouth: Mucous membranes are moist. Respiratory: There are no retractions, lungs are clear to auscultation. Cardiovascular: Regular rate and rhythm. Gastrointestinal: Abdomen is soft and non tender, no masses, bowel sounds normal. Neurological: Anxious appearing, tremulous, moving all extremities without neurological deficits, cranial nerves intact Skin: Warm and dry, no rashes. Musculoskeletal: Neck is supple non tender. Extremities are nontender, nonswollen and have full range of motion. DIFFERENTIAL DIAGNOSIS: After history and physical exam differential diagnosis was considered for electrolyte abnormality, infectious etiology, cavernous sinus thrombosis, anxiety, pituitary abnormality (MEL MCDONALD DO) Medical Decision Making Data Points Result Diagram: 03/10/19 1600 03/10/19 1600 Laboratory Hematology Test 03/10/19 16:00 Red Blood Count 4.74 M/uL (4.17-5.56) Mean Corpuscular Volume 80.1 fL (80.0-96.0) Mean Corpuscular Hemoglobin 28.0 pg (26.0-33.0) Mean Corpuscular Hemoglobin Concent 34.9 g/dL (32.0-36.0) Red Cell Distribution Width 14.1 % (11.5-14.5) Mean Platelet Volume 8.1 fL (7.2-11.1) Neutrophils (%) (Auto) 58.3 % (39.4-72.5) Lymphocytes (%) (Auto) 32.1 % (17.6-49.6) Monocytes (%) (Auto) 6.1 % (4.1-12.4) Eosinophils (%) (Auto) 3.0 % (0.4-6.7) Basophils (%) (Auto) 0.5 % (0.3-1.4) Nucleated RBC Relative Count (auto) 0.0 /100WBC Neutrophils # (Auto) 4.1 K/uL (2.0-7.4) Lymphocytes # (Auto) 2.3 K/uL (1.3-3.6) Monocytes # (Auto) 0.4 K/uL (0.3-1.0) Eosinophils # (Auto) 0.2 K/uL (0.0-0.5) Basophils # (Auto) 0.0 K/uL (0.0-0.1) Nucleated RBC Absolute Count (auto) 0.00 K/uL Erythrocyte Sedimentation Rate 2 mm/HOUR (0-20) Sodium Level 141 mmol/L (137-145) Potassium Level 3.5 mmol/L (3.5-5.0) Chloride Level 105 mmol/L (98-107) Carbon Dioxide Level 24 mmol/L (22-31) Blood Urea Nitrogen 16 mg/dl (7-18) Creatinine 1.10 mg/dl (0.52-1.04) Glomerular Filtration Rate Calc 57.6 Random Glucose 90 mg/dl (75-110) Calcium Level 9.1 mg/dl (8.4-10.2) Total Bilirubin 0.3 mg/dl (0.2-1.3) Aspartate Amino Transf (AST/SGOT) 67 U/L (0-35) Alanine Aminotransferase (ALT/SGPT) 54 U/L (0-56) Alkaline Phosphatase 85 U/L (0-126) C-Reactive Protein < 0.5 mg/dl (<1.0) Total Protein 7.7 g/dl (6.3-8.2) Albumin 4.6 g/dl (3.5-5.0) Chemistry Test 03/10/19 16:00 White Blood Count 7.1 k/uL (4.5-11.0) Red Blood Count 4.74 M/uL (4.17-5.56) Hemoglobin 13.3 g/dL (12.0-16.0) Hematocrit 38.0 % (34.0-47.0) Mean Corpuscular Volume 80.1 fL (80.0-96.0) Mean Corpuscular Hemoglobin 28.0 pg (26.0-33.0) Mean Corpuscular Hemoglobin Concent 34.9 g/dL (32.0-36.0) Red Cell Distribution Width 14.1 % (11.5-14.5) Platelet Count 230 K/uL (150-450) Mean Platelet Volume 8.1 fL (7.2-11.1) Neutrophils (%) (Auto) 58.3 % (39.4-72.5) Lymphocytes (%) (Auto) 32.1 % (17.6-49.6) Monocytes (%) (Auto) 6.1 % (4.1-12.4) Eosinophils (%) (Auto) 3.0 % (0.4-6.7) Basophils (%) (Auto) 0.5 % (0.3-1.4) Nucleated RBC Relative Count (auto) 0.0 /100WBC Neutrophils # (Auto) 4.1 K/uL (2.0-7.4) Lymphocytes # (Auto) 2.3 K/uL (1.3-3.6) Monocytes # (Auto) 0.4 K/uL (0.3-1.0) Eosinophils # (Auto) 0.2 K/uL (0.0-0.5) Basophils # (Auto) 0.0 K/uL (0.0-0.1) Nucleated RBC Absolute Count (auto) 0.00 K/uL Erythrocyte Sedimentation Rate 2 mm/HOUR (0-20) Glomerular Filtration Rate Calc 57.6 Calcium Level 9.1 mg/dl (8.4-10.2) Total Bilirubin 0.3 mg/dl (0.2-1.3) Aspartate Amino Transf (AST/SGOT) 67 U/L (0-35) Alanine Aminotransferase (ALT/SGPT) 54 U/L (0-56) Alkaline Phosphatase 85 U/L (0-126) C-Reactive Protein < 0.5 mg/dl (<1.0) Total Protein 7.7 g/dl (6.3-8.2) Albumin 4.6 g/dl (3.5-5.0) (JAKE SAMAYOA DO) EKG/Imaging Imaging Results: CT scan of the CTA head with runoff was obtained. The results of the study are EXAMINATION: CTA of the Neck with IV contrast CTA of the Head with IV contrast HISTORY: Recent sinus surgery. COMPARISON: None. TECHNIQUE: Overlapping thin sections were obtained during a bolus of IV contrast from the aortic arch through the vertex. Reconstruction of the source data set includes multiplanar 2D in the sagittal and coronal planes, and 3D coronal thin slab MIP series. [employer] images have been stored on PACS. Stenosis of the internal carotid arteries are calculated using NASCET criteria. CONTRAST: 75 mL of IV Isovue-370 One of the following dose optimization techniques was utilized in the performance of this exam: Automated exposure control; adjustment of the mA and/or kV according to the patient's size; or use of an iterative reconstruction technique. Specific details can be referenced in the facility's radiology CT exam operational policy. FINDINGS: Aortic arch and great vessels: Negative. Right CCA/ICA: Negative. 0% stenosis of the origin of the right ICA. Left CCA/ICA: Negative. 0% stenosis of the origin of the left ICA. Vertebrobasilar: Negative. [place]: Negative. LISSET circulation: Negative. MCA circulation: Negative. RESIN REMOVER circulation: Negative. Additional non-angiographic findings: There are postsurgical changes of left-sided ethmoidectomies and left medial antrostomy. There is mild mucosal thickening in the left frontal sinus. Prominent mucosal thickening at the left ethmoid air cells. Mild mucosal thickening in the left sphenoid sinus. Mild mucosal thickening in the left maxi llary sinus. IMPRESSION: No evidence of dissection, thrombosis, aneurysm, or high-grade stenosis of the head or neck arterial vasculature. Postsurgical changes of endoscopic sinus surgery. There is mucosal thickening within the left paranasal sinuses as described in the body of the report. The study was read by the radiologist. I viewed the images myself on the PACS system. Results: CT scan of the sinuses with contrast was obtained. The results of the study are EXAMINATION: CT of the Paranasal Sinuses with intravenous contrast HISTORY: Recent sinus surgery. COMPARISON: None. TECHNIQUE: Contiguous axial images were obtained through the paranasal sinuses with intravenous contrast administration. Coronal and sagittal reformatted images were obtained from the axial source data. CONTRAST: 75 mL of IV Isovue-370 One of the following dose optimization techniques was utilized in the performance of this exam: Automated exposure control; adjustment of the mA and/or kV according to the patient's size; or use of an iterative reconstruction technique. Specific details can be referenced in the facility's radiology CT exam operational policy. FINDINGS: Maxillary sinuses: Status post medial antrostomy of the left maxillary sinus. There is mild mucosal thickening in the left maxillary sinus. Frontal sinuses: There is mild mucosal thickening in the left frontal sinus. The left frontoethmoidal recess is partially opacified by mucosal thickening. Ethmoid air cells: Status post left ethmoidectomies. There is prominent mucosal thickening at the left ethmoid air cells. Sphenoid sinuses: Mild mucosal thickening in the left sphenoid sinus. Ostiomeatal units: The right ostiomeatal unit is patent. There is opacification of the left ethmoid infundibulum. Nasal septum / nasal cavity: Slight rightward deviation of the nasal septum. There is lauren bullosa of the middle turbinates. Posteriorly the cribriform recesses in the upper nasal cavity are opacified. Enhancement: No abscess. Orbits: Negative. Visualized intracranial contents/soft tissues: Negative. TMJs: Negative. IMPRESSION: Mucosal thickening in the paranasal sinuses on the left as detailed in the body of the report. This has decreased compared with the previous examination on 12/08/2018. Postsurgical changes in the paranasal sinuses of medial antrostomy of the left maxillary sinus and left ethmoidectomies. No abscess. The study was read by the radiologist. I viewed the images myself on the PACS system. (JAKE SAMAYOA DO) ED Course/Re-evaluation ED Course Patient is a 33-year-old female here with dizziness, tremulousness. Labs were repeated and showed no acute abnormalities. Patient was given Valium, fluid bolus, meclizine for symptom management as well as Decadron. Due to the patient's reported symptoms of visual changes which have been intermittent, headaches, CT imaging of the head and sinuses with venous runoff to evaluate for cavernous sinus thrombosis was completed. CT imaging was pending at time of sign out. Decision to Disposition Date: Mar 10, 2019 Decision to Disposition Time: 18:00 (MEL MCDONALD DO) ED Course Care was turned over to me at shift change with diagnostic CT results pending. CTA and a sinus with contrast. The studies are unremarkable. Results were discussed with the patient. They are unremarkable for any specific findings to explain her symptoms. She is advised to follow-up with primary care, Dr. Salvador, who did her sinus surgery and maybe neurology. Decision to Disposition Date: Mar 10, 2019 Decision to Disposition Time: 18:23 (JAKE SAMAYOA DO) Depart Departure Latest Vital Signs Vital Signs Date Time Temp Pulse Resp B/P (MAP) Pulse Ox O2 Delivery O2 Flow Rate FiO2 03/10/19 18:48 ??? 03/10/19 18:33 96 03/10/19 18:30 125/65 (85) 03/10/19 17:12 2.0 03/10/19 15:43 98.7 14 Room Air (JAKE SAMAYOA DO) Impression: Primary Impression: Postural dizziness Additional Impressions: Blurry vision Status post functional endoscopic sinus surgery Condition: Improved Disposition: HOME OR SELF-CARE Referrals: JAYCE BOLDEN MD (PCP) Patient Instructions: Dizziness (ED) Additional Instructions: Follow-up with primary care or ENT surgeon. You might require referral to neurology. Problem Qualifiers MEL MCDONALD DO Mar 10, 2019 15:40 JAKE SAMAYOA DO Mar 10, 2019 18:32
[2019-03-10] MEDS ORDERED: NS(*) 0.9% 1000 ML BAG 1,000 ML IV ONE (16:12)
[2019-03-10] MEDS ORDERED: DEXAMETHASONE SOD PHOS 10MG/ML IVP ONE (16:15)
[2019-03-10] MEDS ORDERED: KETOROLAC 30 MG/ML VIAL IVP ONE (16:15)
[2019-03-10] MEDS ORDERED: DIAZEPAM 50 MG/10 ML MDV IVP ONE (16:15)
[2019-03-10 16:25] LABS: PLATELET COUNT, AUTOMATED 230 K/uL (150-450)
[2019-03-10] MEDS ORDERED: IOPAMIDOL 76% 100 ML INFUS BTL 100 ML ONE (16:52)
[2019-03-10] MEDS ORDERED: NS(*) 0.9% 50 ML BAG 50 ML ONE (16:53)
[2019-03-10] MEDS ORDERED: MECLIZINE HCL 25 MG TAB PO ONE (17:15)
--- NOTE | 2019-03-10 18:06 | RADIOLOGY IMAGING REPORT ---
FACILITY: [facility] [place] PATIENT NAME: Norma Parks : 1985 MR: [id number] V: [id number] EXAM DATE: ORDERING PHYSICIAN: MEL MCDONALD TECHNOLOGIST: Location: [facility] Patient: Norma Parks : 1985 Visit/Account:[id number] Date of Sevice: 03/10/2019 EXAMINATION: CTA of the Neck with IV contrast CTA of the Head with IV contrast HISTORY: Recent sinus surgery. COMPARISON: None. TECHNIQUE: Overlapping thin sections were obtained during a bolus of IV contrast from the aortic ar ch through the vertex. Reconstruction of the source data set includes multiplanar 2D in the sagittal and coronal planes, and 3D coronal thin slab MIP series. [employer] images have been stored on PA CS. Stenosis of the internal carotid arteries are calculated using NASCET criteria. CONTRAST: 75 mL of IV Isovue-370 One of the following dose optimization techniques was utilized in the performance of this exam: Autom ated exposure control; adjustment of the mA and/or kV according to the patient's size; or use of an i terative reconstruction technique. Specific details can be referenced in the facility's radiology C T exam operational policy. FINDINGS: Aortic arch and great vessels: Negative. Right CCA/ICA: Negative. 0% stenosis of the origin of the right ICA. Left CCA/ICA: Negative. 0% stenosis of the origin of the left ICA. Vertebrobasilar: Negative. [place]: Negative. LISSET circulation: Negative. MCA circulation: Negative. KENNEL MANAGER circulation: Negative. Additional non-angiographic findings: There are postsurgical changes of left-sided ethmoidectomies and left medial antrostomy. There is mil d mucosal thickening in the left frontal sinus. Prominent mucosal thickening at the left ethmoid air cells. Mild mucosal thickening in the left sphenoid sinus. Mild mucosal thickening in the left maxill aust[place] sinus. IMPRESSION: No evidence of dissection, thrombosis, aneurysm, or high-grade stenosis of the head or neck arterial vasculature. Postsurgical changes of endoscopic sinus surgery. There is mucosal thickening within the left paranas al sinuses as described in the body of the report. Report Dictated By: Akil Knott MD at 03/10/2019 5:45 PM Report E-Signed By: Akil Knott MD at 03/10/2019 6:00 PM [id number]
--- NOTE | 2019-03-10 18:18 | RADIOLOGY IMAGING REPORT ---
FACILITY: [facility] - [place] PATIENT NAME: Norma Parks : 1985 MR: [id number] V: [id number] EXAM DATE: ORDERING PHYSICIAN: MEL MCDONALD TECHNOLOGIST: Location: [facility] [place] Patient: Norma Parks : 1985 Visit/Account:[id number] Date of Sevice: 03/10/2019 EXAMINATION: CT of the Paranasal Sinuses with intravenous contrast HISTORY: Recent sinus surgery. COMPARISON: None. TECHNIQUE: Contiguous axial images were obtained through the paranasal sinuses with intravenous cont rast administration. Coronal and sagittal reformatted images were obtained from the axial source data . CONTRAST: 75 mL of IV Isovue-370 One of the following dose optimization techniques was utilized in the performance of this exam: Autom ated exposure control; adjustment of the mA and/or kV according to the patient's size; or use of an i terative reconstruction technique. Specific details can be referenced in the facility's radiology C T exam operational policy. FINDINGS: Maxillary sinuses: Status post medial antrostomy of the left maxillary sinus. There is mild mucosal t hickening in the left maxillary sinus. Frontal sinuses: There is mild mucosal thickening in the left frontal sinus. The left frontoethmoida l recess is partially opacified by mucosal thickening. Ethmoid air cells: Status post left ethmoidectomies. There is prominent mucosal thickening at the lef t ethmoid air cells. Sphenoid sinuses: Mild mucosal thickening in the left sphenoid sinus. Ostiomeatal units: The right ostiomeatal unit is patent. There is opacification of the left ethmoid infundibulum. Nasal septum / nasal cavity: Slight rightward deviation of the nasal septum. There is lauren bullosa of the middle turbinates. Posteriorly the cribriform recesses in the upper nasal cavity are opacified . Enhancement: No abscess. Orbits: Negative. Visualized intracranial contents/soft tissues: Negative. TMJs: Negative. IMPRESSION: Mucosal thickening in the paranasal sinuses on the left as detailed in the body of the report. This h as decreased compared with the previous examination on 12/08/2018. Postsurgical changes in the paranasal sinuses of medial antrostomy of the left maxillary sinus and le ft ethmoidectomies. No abscess. Report Dictated By: Akil Knott MD at 03/10/2019 6:00 PM Report E-Signed By: Akil Knott MD at 03/10/2019 6:12 PM [id number]
[2019-03-10 18:30] VITALS: BP 125/65
== END 2019-03-10 18:53 | disposition home or self-care (01) ==
LOC: ER 15:54
DX: R42 Dizziness and giddiness (principal); H53.8 Other visual disturbances
CPT/HCPCS: 70487; 70496; 85025; 85651; 86140; 96361; 96374; 96375; 99284; J1100; J1885; J3360; J7030; J7050; J8597; Q9967; 82040; 82247; 82310; 82374; 82435; 82565; 82947; 84075; 84132; 84155; 84295; 84450; 84460; 84520

== ENCOUNTER → 2019-04-07 | Outpatient (CLI) | payer OTHER ==
[2018-01-24 20:22] VITALS: BMI 42.8
== END ==
LOC: LAB 11:31
PROVIDERS: ATTEND Obstetrics & Gynecology
DX: Z86.718 Personal history of other venous thrombosis and embolism (principal)
CPT/HCPCS: 36415; 81240; 81241; 85300; 85303; 85306; 85610; 85613; 85730; 86146; 86147